=== PATIENT | male | born 1980 | race Caucasian/White ===

== ENCOUNTER → 2016-05-07 | Outpatient (CLI) | payer OTHER ==
[~2016-05-07] MED LIST: Iopamidol 755 MG/ML 500 ML Multipack Bottle IVPUSH STA
--- NOTE | 2016-05-07 14:09 | CT ---
CT of the abdomen and pelvis with contrast. HISTORY: Pain TECHNIQUE: Axial CT images were obtained of the abdomen and pelvis following administration of 100 m L of Isovue-370 in the right antecubital fossa without complication. Coronal and sagittal reconstruc tions obtained. FINDINGS: The lung bases are clear, no pleural effusion. The liver, spleen, adrenal glands, and pancreas appear normal. The gallbladder is unremarkable. No b ulky retroperitoneal lymphadenopathy or abdominal ascites. The kidneys enhance and function symmetrically without evidence of obstructive uropathy. There is a tiny cyst within the lower pole of the left kidney. The large and small bowel are normal in caliber without evidence of obstruction. No pericolonic infl ammation or stranding. The urinary bladder is mostly decompressed. No bulky pelvic lymphadenopathy o r free pelvic fluid. The visualized osseous structures appear normal. Bilateral posterior fusion hardware noted at L5-S1. IMPRESSION: 1. No acute findings within the abdomen or pelvis.
== END ==
LOC: MW.DI 10:18
PROVIDERS: ATTEND Surgery
DX: R10.9 Unspecified abdominal pain (principal); R19.00 Intra-abdominal and pelvic swelling, mass and lump, unspecified site
CPT/HCPCS: 74177; Q9967

== ENCOUNTER 2016-05-14 07:27 | Day surgery (SDC) | payer OTHER ==
--- NOTE | 2016-05-13 11:27 | PCM.PREANE ---
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: no symptoms Respiratory: Reports: no symptoms Cardiovascular: Reports: no symptoms GI: Reports: no symptoms - PHYSICAL ASSESSMENT Height: 1.83 m Weight: 110.223 kg ASA Class: 2 Mental Status: alert & oriented x3 Dentition: Reports: normal dentition ROM/Head Extension: full Respiratory Status: lungs clear to auscultation bilaterally Cardiovascular Status: regular rate & rhythm, normal S1, S2, no murmur - ALLERGIES Allergies/Adverse Reactions: Allergies Allergy/AdvReac Type Severity Reaction Status Date / Time Penicillins Allergy Rash Verified 06/21/14 14:14 - BLOOD Blood Available: No - ANESTHESIA PLAN Preop Beta Kelechi: No Anesthesia Type Planned: general anesthesia, MAC - ACKNOWLEDGEMENTS Pt an appropriate candidate for the planned anesthesia: Yes Alternatives and risks of anesthesia discussed w pt/guardian: Yes Pt/Guardian understands and agree with anesthesia plan: Yes PreAnesthesia Questionnaire Gastrointestinal History: Reports: Other (see below) Other Gastrointestinal History: occasional heartburn Musculoskeletal History: Reports: Other (see below) Other Musculoskeletal History: occasional left knee pain Neurological History: Reports: Migraines Endocrine/Metabolic History: Reports: Obesity/BMI 30+ Immunologic History: Reports: None Other Immunologic History: hx MRSA - Past Surgical History Head Surgeries/Procedures: Reports: None GI Surgical History: Reports: Appendectomy, Colonoscopy Other GI Surgeries/Procedures: anal fissurectomy Neurological Surgical History: Reports: Lumbar spine Other Neurological Surgeries/Procedures: back fusion Other Musculoskeletal Surgeries/Procedures:: hx left hand surgery - SUBSTANCE USE Smoking Status *Q: Former Smoker Second Hand Smoke Exposure: Yes Days Per Week of Alcohol Use: 0 Number of Drinks Per Day: 3 Total Drinks Per Week: 0 Recreational Drug Use History: No - HOME MEDS Home Medications: Home Meds Acetaminophen [Tylenol Extra Strength] 1 tab PO ASDIRECTED PRN 05/09/16 [History ] Fish Oil/[place]-3 Fatty Acids [Fish Oil 1,000 MG] 1,000 mg PO DAILY 05/09/16 [ History] Ibuprofen 1 tab PO ASDIRECTED PRN 05/09/16 [History] Lidocaine 5% [Lidoderm 5%] 1 patch TRDERM ASDIRECTED PRN 05/09/16 [History] Sildenafil [Viagra] 0.5 - 1 tab PO ASDIRECTED PRN 05/09/16 [History]
[~2016-05-14 07:27] MED LIST changes: -Iopamidol 755 MG/ML 500 ML Multipack Bottle IVPUSH STA; +Lactated Ringers 1,000 ML IV SCH
[2016-05-14] MEDS ORDERED: Propofol 200 MG/20 ML SDV ONE (08:23)
[2016-05-14] MEDS ORDERED: fentaNYL 100 MCG/2 ML SDV ONE (08:23)
[2016-05-14] MEDS ORDERED: Midazolam 1 MG/ML 2 ML SDV ONE (08:23)
[2016-05-14] MEDS ORDERED: ceFAZolin 2 GM in Premix Bag 1 BAG IV ONE (08:25)
[2016-05-14] MEDS ORDERED: Octyl 2-Cyanoacrylate 1 Tube ONE (09:15)
[2016-05-14] MEDS ORDERED: Bupivacaine 0.25%/EPINEPHrine 1:200,000 10 ML SDV ONE ×2 (09:15→10:10)
[2016-05-14] MEDS ORDERED: Acetaminophen/oxyCODONE 325-10 MG Tab PO PRN (09:19)
[2016-05-14] MEDS ORDERED: Clindamycin Phosphate in D5W 600 MG in Premix Bag 50 BAG IV ONE ×2 (09:26)
[2016-05-14] MEDS ORDERED: Lactated Ringers 1,000 ML IV SCH (09:30)
--- NOTE | 2016-05-14 10:10 | PCM.OPNOTE ---
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
--- NOTE | 2016-05-14 10:18 | PCM.POSTAN ---
POST ANESTHESIA ASSESSMENT - MENTAL STATUS Mental Status: alert (Bypassed PACU. Awake, alert and comfortable.), oriented - RESPIRATORY Respiratory Status: respiratory rate WNL, airway patent, O2 saturation stable - CARDIOVASCULAR CV Status: pulse rate WNL, blood pressure stable - GASTROINTESTINAL GI Status: no symptoms - POST OP HYDRATION Hydration Status: adequate & stable
--- NOTE | 2016-05-14 10:22 | PCM48HPAN ---
Post Anesthesia Note - EVALUATION WITHIN 48HRS OF ANESTHETIC Vital Signs in Normal Range: Yes Patient Participated in Evaluation: Yes Respiratory Function Stable: Yes Airway Patent: Yes Cardiovascular Function Stable: Yes Hydration Status Stable: Yes Pain Control Satisfactory: Yes Nausea and Vomiting Control Satisfactory: Yes Mental Status Recovered: Yes
[2016-05-14 13:03] VITALS: BP 106/60
--- NOTE | 2016-05-14 17:29 | OR ---
SURGEON: Jose Francisco Aguilar MD DATE OF PROCEDURE: 05/14/2016 PREOPERATIVE DIAGNOSIS: Abdominal mass. POSTOPERATIVE DIAGNOSIS: Abdominal mass. PROCEDURE PERFORMED: Excisional biopsy. COMPLICATIONS: None. FINDINGS: Abdominal mass is a little bit to the left of the base of penis and is well encapsulated lipoma, excised en bloc sent for pathology. PROCEDURE IN DETAIL: The patient was taken to the operating room and placed in a supine position. Upon induction of mild general anesthesia, the patient's was prepped and draped in a sterile fashion. Time-out was then called and patient identified, procedure identified, antibiotic given and procedure was then started. After assessment of appropriate landmarks, an oblique incision right on top of the mass was made 3 x 1 cm, which the mass was easily squeezed out and sent for pathology, the well encapsulated with lipoma appearance. No other organ encountered and good hemostasis was achieved by using electrocautery. The wound was irrigated and closed by using 3-0 Ethilon simple interrupted running was placed and followed with appropriate dressing. The patient was awakened and transferred to recovery in hemodynamically stable condition. The patient tolerated the procedure well. There were no intraoperative complications. Dr. Aguilar was present throughout the whole procedure. NORAH / NARESH /[id number]
== END 2016-05-14 11:02 | disposition home or self-care (01) ==
LOC: MW.SDS 07:27
PROVIDERS: ATTEND Surgery
PROC: 0WBF0ZX Excision of Abdominal Wall, Open Approach, Diagnostic (ICD-10-PCS; principal; 2016-05-14)
DX: D17.39 Benign lipomatous neoplasm of skin and subcutaneous tissue of other sites (principal); R19.09 Other intra-abdominal and pelvic swelling, mass and lump; K40.90 Unilateral inguinal hernia, without obstruction or gangrene, not specified as recurrent; N52.9 Male erectile dysfunction, unspecified; H60.90 Unspecified otitis externa, unspecified ear; G43.109 Migraine with aura, not intractable, without status migrainosus; M25.562 Pain in left knee; M67.462 Ganglion, left knee; M22.42 Chondromalacia patellae, left knee; Z88.0 Allergy status to penicillin; Z87.891 Personal history of nicotine dependence; E66.9 Obesity, unspecified; Z68.33 Body mass index [BMI] 33.0-33.9, adult
CPT/HCPCS: 22999; J0690; J2250; J3010; J7120; 00400; 88304; A9270-GY; J2704

== ENCOUNTER → 2016-05-27 | Outpatient (CLI) | payer OTHER | END | disposition home or self-care (01) | LOC: MW.CHUR 09:47 | PROVIDERS: ATTEND Urology | DX: N52.9 Male erectile dysfunction, unspecified (principal) | CPT/HCPCS: 81001 ==

== ENCOUNTER 2016-05-30 11:35 | Emergency (ER) | payer OTHER ==
[2016-05-30] MEDS ORDERED: Sodium Chloride 0.9% 10 ML Syringe FLUSH PRN (12:25)
[2016-05-30] MEDS ORDERED: Sodium Chloride 0.9% 2.5 ML Syringe FLUSH PRN (12:25)
[2016-05-30] MEDS ORDERED: HYDROmorphone 2 MG/ML Syringe IVPUSH ONE ×2 (12:25→13:46)
[2016-05-30] MEDS ORDERED: Sodium Chloride 0.9% 1,000 ML IV ONE (12:25)
--- NOTE | 2016-05-30 12:41 | EDM.PDOC ---
ED HPI GENERAL MEDICAL PROBLEM - General Chief Complaint: General Stated Complaint: PAIN Time Seen by Provider: 05/30/16 12:14 - History of Present Illness INITIAL COMMENTS - FREE TEXT/NARRATIVE: HISTORY AND PHYSICAL: History of present illness: The patient is a 35-year-old male with a history of surgery--excisional biopsy- - with Dr. Aguilar on May 14 to remove an encapsulated mass at his suprapubic area. The patient had his su removed on Friday, 3 days ago, and he is here because he has not had pain at the site and he suddenly has pain at the site for the last day and a half. He also is concerned that maybe the skin edges were opening up. The patient says he feels lightheaded and weak because of the pain he is not taking pain medications recently for this. The patient denies any fever chills chest pain or shortness of breath and has no abdominal pain. He states that this morning he had a small bowel movement which was yellow in color with bright red blood. He denies any history of colonic or rectal issues. He has no rectal pain. Patient has not passed out or blacked out but does feel very lightheaded and not dizzy. Review of systems: As per history of present illness and below otherwise all systems reviewed and negative. Past medical history: As per history of present illness and as reviewed below otherwise noncontributory. Surgical history: As per history of present illness and as reviewed below otherwise noncontributory. Social history: No reported history of drug or alcohol abuse. Family history: As per history of present illness and as reviewed below otherwise noncontributory. Physical exam: General: Well-developed well-nourished male nontoxic moves easily in the bed. His vital signs of a noted by me HEENT: Atraumatic, normocephalic, negative for conjunctival pallor or scleral icterus, mucous membranes moist, throat clear, neck supple, nontender, trachea midline. Lungs: Clear to auscultation, breath sounds equal bilaterally, chest nontender. Heart: S1S2, regular, negative for clicks, rubs, or JVD. Abdomen: Soft, nondistended, nontender. Negative for masses or hepatosplenomegaly. Negative for costovertebral tenderness. Pelvis: Stable nontender. Genitourinary: At the soft tissue lower pelvic area/mons pubis to the left there is a well-healed incision without erythema and Steri-Strips are in place. There is no fluctuance appreciated there is only minimal induration at the incision line. The skin edges are well approximated. There is some tenderness just medial to this incision but there is no fluctuance tenderness redness or swelling appreciated. Rectal: Normal tone no evidence of any masses or lesions and there is no stool in the vault but the mucus is heme-negative Extremities: Atraumatic, negative for cords or calf pain. Neurovascular unremarkable. Neuro: Awake, alert, oriented. Cranial nerves II through XII unremarkable. Cerebellum unremarkable. Motor and sensory unremarkable throughout. Exam nonfocal. Diagnostics: Orthostatic vital CBC CMP INR CT scan of the abdomen and pelvis Therapeutics: IV fluids Dilaudid Zofran [place] 1343: Case was discussed with ; he does not feel that the pain is postsurgical but he agrees that the patient is having severe pain to repeat the CAT scan and to recontact him if there is any problems. He also is aware of the one episode of blood in the stool and that he can follow that up with a possible colonoscopy as needed. The testing results including the CAT scan were discussed with the patient and at bedside. They're aware of the negative findings and the has scheduled a followup appointment with Dr. Aguilar for tomorrow. I will not recontact Dr. Aguilar with the testing results as I told him I would only recontact him if there was significant findings. I will prescribe pain meds for home for the next 24 hours and will stress rest slower movements and reasons to return Impression: Postoperative pain/incisional pain stable Definitive disposition and diagnosis as appropriate pending reevaluation and review of above. Left Groin Pain Score (Numeric/FACES): 8 - Related Data Allergies Allergy/AdvReac Type Severity Reaction Status Date / Time Penicillins Allergy Rash Verified 06/21/14 14:14 Home Meds: Home Meds Acetaminophen [Tylenol Extra Strength] 1 tab PO ASDIRECTED PRN 05/09/16 [History ] Fish Oil/[place]-3 Fatty Acids [Fish Oil 1,000 MG] 1,000 mg PO DAILY 05/09/16 [ History] Ibuprofen 1 tab PO ASDIRECTED PRN 05/09/16 [History] Lidocaine 5% [Lidoderm 5%] 1 patch TRDERM ASDIRECTED PRN 05/09/16 [History] Sildenafil [Viagra] 0.5 - 1 tab PO ASDIRECTED PRN 05/09/16 [History] Past Medical History Gastrointestinal History: Reports: Other (see below) Other Gastrointestinal History: occasional heartburn Musculoskeletal History: Reports: Other (see below) Other Musculoskeletal History: occasional left knee pain Neurological History: Reports: Migraines Endocrine/Metabolic History: Reports: Obesity/BMI 30+ Immunologic History: Reports: None Other Immunologic History: hx MRSA - Past Surgical History Head Surgeries/Procedures: Reports: None GI Surgical History: Reports: Appendectomy, Colonoscopy, Other (see below) Other GI Surgeries/Procedures: anal fissurectomy, removal of mass Neurological Surgical History: Reports: Lumbar spine Other Neurological Surgeries/Procedures: back fusion Other Musculoskeletal Surgeries/Procedures:: hx left hand surgery Social & Family History - Tobacco Use Smoking Status *Q: Never Smoker Years of Tobacco use: 10 Month Tobacco Last Used: quit smoking 5 yrs ago Second Hand Smoke Exposure: No - Caffeine Use Caffeine Use: Reports: Soda - Alcohol Use Days Per Week of Alcohol Use: 0 Number of Drinks Per Day: 3 Total Drinks Per Week: 0 - Recreational Drug Use Recreational Drug Use: No Drug Use in Last 12 Months: No ED ROS GENERAL - Review of Systems Review Of Systems: ROS reveals no pertinent complaints other than HPI. ED EXAM, GENERAL - Physical Exam Exam: See Below (See dictation) Course - Vital Signs Last Recorded V/S: Last Vital Signs Temp 36.7 C 05/30/16 11:52 Pulse 65 05/30/16 14:48 Resp 18 05/30/16 14:48 BP 128/76 05/30/16 14:48 Pulse Ox 98 05/30/16 14:48 Orthostatic Blood Pressure [ 141/92 Standing] Orthostatic Blood Pressure [ 124/87 Sitting] Orthostatic Blood Pressure [ 126/84 Supine] - Orders/Labs/Meds Orders: Active Orders 24 hr Category Date Time Status Communication Order [RC] STAT Care 05/30/16 12:24 Active Fecal Occult Blood Collection [RC] ASDIRECTED Care 05/30/16 13:40 Active Orthostatic Vital Signs [RC] ASDIRECTED Care 05/30/16 12:27 Active Sodium Chloride 0.9% [Saline Flush] Med 05/30/16 12:25 Active 10 ml FLUSH ASDIRECTED PRN Sodium Chloride 0.9% [Saline Flush] Med 05/30/16 12:25 Active 2.5 ml FLUSH ASDIRECTED PRN Saline Lock Insert [OM.PC] Stat Oth 05/30/16 12:24 Ordered Medication Orders Sodium Chloride (Saline Flush) 10 ml FLUSH ASDIRECTED PRN PRN Reason: Keep Vein Open Sodium Chloride (Saline Flush) 2.5 ml FLUSH ASDIRECTED PRN PRN Reason: Keep Vein Open Labs: Laboratory Tests 05/30/16 05/30/16 05/30/16 Range/Units 12:40 12:40 12:40 WBC 8.40 (4.0-11.0) K/uL RBC 4.87 (4.50-5.90) M/uL Hgb 15.0 (13.0-17.0) g/dL Hct 43.9 (38.0-50.0) % MCV 90.1 (80.0-98.0) fL MCH 30.8 (27.0-32.0) pg MCHC 34.2 (31.0-37.0) g/dL RDW Std Deviation 41.3 (28.0-62.0) fl RDW Coeff of [place] 13 (11.0-15.0) % Plt Count 284 (150-400) K/uL MPV 9.80 (7.40-12.00) fL Neut % (Auto) 50.5 (48.0-80.0) % Lymph % (Auto) 35.0 (16.0-40.0) % [place] % (Auto) 11.3 (0.0-15.0) % Eos % (Auto) 2.5 (0.0-7.0) % Baso % (Auto) 0.7 (0.0-1.5) % Neut # (Auto) 4.2 (1.4-5.7) K/uL Lymph # (Auto) 2.9 H (0.6-2.4) K/uL [place] # (Auto) 1.0 H (0.0-0.8) K/uL Eos # (Auto) 0.2 (0.0-0.7) K/uL Baso # (Auto) 0.1 (0.0-0.1) K/uL Nucleated RBC % 0.0 /100WBC Nucleated RBCs # 0 K/uL INR 1.02 (0.86-1.11) Sodium 140 (136-146) mmol/L Potassium 4.0 (3.5-5.1) mmol/L Chloride 108 (98-110) mmol/L Carbon Dioxide 22 (21-31) mmol/L BUN 22 (6.0-23.0) mg/dL Creatinine 1.1 (0.6-1.5) mg/dL Est Cr Clr Drug Dosing 103.86 mL/min Estimated GFR (MDRD) > 60.0 ml/min Glucose 81 (60-110) mg/dL Calcium 9.4 (8.8-10.8) mg/dL Total Bilirubin 0.4 (0.1-1.5) mg/dL AST 14 (5-40) IU/L ALT 23 (8-54) IU/L Alkaline Phosphatase 56 (40-150) Total Protein 7.2 (6.0-8.0) g/dL Albumin 4.1 (3.5-5.0) g/dL Globulin 3.1 (2.0-3.5) g/dL Albumin/Globulin Ratio 1.3 (1.3-2.8) Urine Color Urine Appearance Urine pH (5.0-8.0) Ur Specific [place] (1.001-1.035) Urine Protein (NEGATIVE) mg/dL Urine Glucose (UA) (NEGATIVE) mg/dL Urine Ketones (NEGATIVE) mg/dL Urine Occult Blood (NEGATIVE) Urine Nitrite (NEGATIVE) Urine Bilirubin (NEGATIVE) Urine Urobilinogen (<2.0) EU/dL Ur Leukocyte Esterase (NEGATIVE) Urine RBC (0-2/HPF) Urine WBC (0-5/HPF) Ur Epithelial Cells (NONE-FEW) Urine Bacteria (NEGATIVE) 05/30/16 Range/Units 13:56 WBC (4.0-11.0) K/uL RBC (4.50-5.90) M/uL Hgb (13.0-17.0) g/dL Hct (38.0-50.0) % MCV (80.0-98.0) fL MCH (27.0-32.0) pg MCHC (31.0-37.0) g/dL RDW Std Deviation (28.0-62.0) fl RDW Coeff of [place] (11.0-15.0) % Plt Count (150-400) K/uL MPV (7.40-12.00) fL Neut % (Auto) (48.0-80.0) % Lymph % (Auto) (16.0-40.0) % [place] % (Auto) (0.0-15.0) % Eos % (Auto) (0.0-7.0) % Baso % (Auto) (0.0-1.5) % Neut # (Auto) (1.4-5.7) K/uL Lymph # (Auto) (0.6-2.4) K/uL [place] # (Auto) (0.0-0.8) K/uL Eos # (Auto) (0.0-0.7) K/uL Baso # (Auto) (0.0-0.1) K/uL Nucleated RBC % /100WBC Nucleated RBCs # K/uL INR (0.86-1.11) Sodium (136-146) mmol/L Potassium (3.5-5.1) mmol/L Chloride (98-110) mmol/L Carbon Dioxide (21-31) mmol/L BUN (6.0-23.0) mg/dL Creatinine (0.6-1.5) mg/dL Est Cr Clr Drug Dosing mL/min Estimated GFR (MDRD) ml/min Glucose (60-110) mg/dL Calcium (8.8-10.8) mg/dL Total Bilirubin (0.1-1.5) mg/dL AST (5-40) IU/L ALT (8-54) IU/L Alkaline Phosphatase (40-150) Total Protein (6.0-8.0) g/dL Albumin (3.5-5.0) g/dL Globulin (2.0-3.5) g/dL Albumin/Globulin Ratio (1.3-2.8) Urine Color YELLOW Urine Appearance CLEAR Urine pH 5.5 (5.0-8.0) Ur Specific [place] 1.025 (1.001-1.035) Urine Protein NEGATIVE (NEGATIVE) mg/dL Urine Glucose (UA) NEGATIVE (NEGATIVE) mg/dL Urine Ketones NEGATIVE (NEGATIVE) mg/dL Urine Occult Blood NEGATIVE (NEGATIVE) Urine Nitrite NEGATIVE (NEGATIVE) Urine Bilirubin NEGATIVE (NEGATIVE) Urine Urobilinogen 0.2 (<2.0) EU/dL Ur Leukocyte Esterase NEGATIVE (NEGATIVE) Urine RBC 0-2 (0-2/HPF) Urine WBC 0-1 (0-5/HPF) Ur Epithelial Cells RARE (NONE-FEW) Urine Bacteria RARE (NEGATIVE) Meds: Medications Generic Name Dose Route Start Last Admin Trade Name Freq PRN Reason Stop Dose Admin Sodium Chloride 10 ml 05/30/16 12:25 Saline Flush FLUSH ASDIRECTED PRN Keep Vein Open Sodium Chloride 2.5 ml 05/30/16 12:25 Saline Flush FLUSH ASDIRECTED PRN Keep Vein Open Discontinued Medications Generic Name Dose Route Start Last Admin Trade Name Freq PRN Reason Stop Dose Admin Hydromorphone HCl 0.5 mg 05/30/16 12:25 05/30/16 12:42 Dilaudid IVPUSH 05/30/16 12:26 0.5 mg ONETIME ONE Administration Hydromorphone HCl 1 mg 05/30/16 13:46 05/30/16 14:01 Dilaudid IVPUSH 05/30/16 13:47 1 mg ONETIME ONE Administration Sodium Chloride 1,000 mls @ 999 mls/hr 05/30/16 12:25 05/30/16 12:41 Normal Saline IV 05/30/16 13:25 999 mls/hr STAT ONE Administration Iopamidol 100 ml 05/30/16 14:29 05/30/16 14:30 Isovue Multipack-370 (76%) IVPUSH 05/30/16 14:30 100 ml ONETIME STA Administration Lorazepam 1 mg 05/30/16 14:09 05/30/16 14:16 Ativan IVPUSH 05/30/16 14:10 1 mg ONETIME ONE Administration Departure - Departure Time of Disposition: 15:46 Disposition: Home, Self-Care 01 Condition: good Clinical Impression: Pain at surgical incision Forms: ED Department Discharge Additional Instructions: The following information is given to patients seen in the emergency department who are being discharged to home. This information is to outline your options for follow-up care. We provide all patients seen in our emergency department with a follow-up referral. The need for follow-up, as well as the timing and circumstances, are variable depending upon the specifics of your emergency department visit. If you don't have a primary care physician on staff, we will provide you with a referral. We always advise you to contact your personal physician following an emergency department visit to inform them of the circumstance of the visit and for follow-up with them and/or the need for any referrals to a consulting specialist. The emergency department will also refer you to a specialist when appropriate. This referral assures that you have the opportunity for followup care with a specialist. All of these measure are taken in an effort to provide you with optimal care, which includes your followup. Under all circumstances we always encourage you to contact your private physician who remains a resource for coordinating your care. When calling for followup care, please make the office aware that this follow-up is from your recent emergency room visit. If for any reason you are refused follow-up, please contact the [facility] emergency department at and ask to speak to the emergency department charge nurse. [facility] Specialty Care-General Surgery Professional Building [address] [place] [id number] [facility] Primary care- Internal Medicine and Family [facility] [address] [place] [phone] Please keep your appointment tomorrow with Dr. Aguilar for further care and evaluation and more medication as he might need. Please return to ER as needed and as discussed. Please try to rest and reduce activity and do motions more slowly. Use meds as prescribed and as needed - My Orders Last 24 Hours: My Active Orders 05/30/16 12:24 Communication Order [RC] STAT Saline Lock Insert [OM.PC] Stat 05/30/16 12:25 Sodium Chloride 0.9% [Saline Flush] 10 ml FLUSH ASDIRECTED PRN Sodium Chloride 0.9% [Saline Flush] 2.5 ml FLUSH ASDIRECTED PRN 05/30/16 12:27 Orthostatic Vital Signs [RC] ASDIRECTED 05/30/16 13:40 Fecal Occult Blood Collection [RC] ASDIRECTED - Assessment/Plan Last 24 Hours: My Active Orders 05/30/16 12:24 Communication Order [RC] STAT Saline Lock Insert [OM.PC] Stat 05/30/16 12:25 Sodium Chloride 0.9% [Saline Flush] 10 ml FLUSH ASDIRECTED PRN Sodium Chloride 0.9% [Saline Flush] 2.5 ml FLUSH ASDIRECTED PRN 05/30/16 12:27 Orthostatic Vital Signs [RC] ASDIRECTED 05/30/16 13:40 Fecal Occult Blood Collection [RC] ASDIRECTED
[2016-05-30 13:17] LABS: CHLORIDE,CL 108 mmol/L (98-110); SODIUM,NA 140 mmol/L (136-146)
[2016-05-30] MEDS ORDERED: LORazepam 2 MG/ML MDV IVPUSH ONE (14:09)
[2016-05-30] MEDS ORDERED: Iopamidol 755 MG/ML 500 ML Multipack Bottle IVPUSH STA (14:29)
--- NOTE | 2016-05-30 15:06 | CT ---
CT of the abdomen and pelvis with contrast. HISTORY: Pain TECHNIQUE: Axial CT images were obtained of the abdomen and pelvis following administration of 100 m L of Isovue-370 in the right antecubital fossa without complication. Coronal and sagittal reconstruc tions obtained. FINDINGS: The lung bases are clear, no pleural effusion. Trace dependent atelectasis is noted. The liver, spleen, adrenal glands, and pancreas appear normal. The gallbladder is normal. There is n o bulky retroperitoneal lymphadenopathy or abdominal ascites. The kidneys enhance and function symmetrically without evidence of obstructive uropathy. Small renal cortical cysts are noted. The large and small bowel are normal in caliber without evidence of obstruction. Appendectomy. The urinary bladder is mostly decompressed. No bulky pelvic lymphadenopathy or free pelvic fluid. No suspicious osseous abnormalities identified. Bilateral posterior fusion hardware at L5-S1 with a laminectomy at L5. IMPRESSION: 1. No acute findings within the abdomen or pelvis.
[2016-05-30] MEDS ORDERED: Ketorolac 30 MG/ML SDV IVPUSH ONE (15:47)
[2016-05-30] MEDS ORDERED: Acetaminophen/HYDROcodone 325-7.5 MG Tab PO ONE (15:47)
[2016-05-30 16:47] VITALS: BP 116/80
== END 2016-05-30 16:06 | disposition home or self-care (01) ==
LOC: MW.ED 11:35
DX: G89.18 Other acute postprocedural pain (principal); Z88.0 Allergy status to penicillin; Z79.899 Other long term (current) drug therapy
CPT/HCPCS: 74177; 80053; 81001; 85025; 85610; 96361; 96374; 96375; 96376; 99284; A9270; J1170; J1885; J2060; J7040; Q9967; 99285

== ENCOUNTER → 2016-06-26 | Outpatient (CLI) | payer OTHER | END | disposition home or self-care (01) | LOC: MW.CHUR 09:42 | PROVIDERS: ATTEND Urology | DX: E29.1 Testicular hypofunction (principal) | CPT/HCPCS: 36415; 84402; 84403 ==

== ENCOUNTER 2016-06-27 09:50 | Day surgery (SDC) | payer OTHER ==
[2016-06-27] MEDS ORDERED: Propofol 200 MG/20 ML SDV ONE ×2 (10:21→12:11)
[2016-06-27] MEDS ORDERED: Lidocaine 2% 5 ML SDV ONE (10:21)
[2016-06-27] MEDS ORDERED: Midazolam 1 MG/ML 2 ML SDV ONE (10:22)
[2016-06-27] MEDS ORDERED: fentaNYL 100 MCG/2 ML SDV ONE (10:22)
--- NOTE | 2016-06-27 11:01 | PCM.PREANE ---
Preanesthetic Assessment - Anesthesia/Transfusion/Family Hx Anesthesia History: Prior Anesthesia Without Reaction Other Type of Anesthesia Reaction Comment: Denies any known problems in the past Family History of Anesthesia Reaction: No Transfusion History: No Prior Transfusion(s) - Review of Systems General: No Symptoms Pulmonary: No Symptoms Cardiovascular: No Symptoms Neurological: No Symptoms Other: Reports: None - Physical Assessment O2 Sat by Pulse Oximetry: 98 Respiratory Rate: 16 Vital Signs: Last Vital Signs Temp 36.6 C 06/27/16 10:37 Pulse 69 06/27/16 10:37 Resp 16 06/27/16 10:37 BP 117/69 06/27/16 10:37 Pulse Ox 98 06/27/16 10:37 Height: 1.83 m Weight: 110.223 kg ASA Class: 2 Mental Status: Alert & Oriented x3 Airway Class: Mallampati = 2 Dentition: Reports: Normal Dentition Thyro-Mental Finger Breadths: 3 Mouth Opening Finger Breadths: 3 ROM/Head Extension: Full Lungs: Clear to auscultation, Normal respiratory effort Cardiovascular: Regular Rate, Regular Rhythm - Allergies Allergies/Adverse Reactions: Allergies Allergy/AdvReac Type Severity Reaction Status Date / Time Penicillins Allergy Rash Verified 06/21/14 14:14 - Blood Blood Available: No - Anesthesia Plan Pre-Op Medication Ordered: None - Acknowledgements Anesthesia Type Planned: MAC Pt an Appropriate Candidate for the Planned Anesthesia: Yes Alternatives and Risks of Anesthesia Discussed w Pt/Guardian: Yes Pt/Guardian Understands and Agrees with Anesthesia Plan: Yes PreAnesthesia Questionnaire Cardiovascular History: Reports: High cholesterol (h/o slightly increased cholesterol, takes fish oil) Gastrointestinal History: Reports: Other (see below) Other Gastrointestinal History: occasional heartburn Musculoskeletal History: Reports: Other (see below) Other Musculoskeletal History: occasional left knee pain, h/o back pain Neurological History: Reports: Migraines Endocrine/Metabolic History: Reports: Obesity/BMI 30+ Immunologic History: Reports: None Other Immunologic History: hx MRSA Dermatologic History: Reports: Other (see below) Other Dermatologic History: resection of abd wall lipoma approximently 4 to 5 weeks ago - Past Surgical History Head Surgeries/Procedures: Reports: None GI Surgical History: Reports: Appendectomy, Colonoscopy, Other (see below) Other GI Surgeries/Procedures: anal fissurectomy, removal of abdominal wall lipoma about a month ago Neurological Surgical History: Reports: Lumbar spine Other Neurological Surgeries/Procedures: back fusion Other Musculoskeletal Surgeries/Procedures:: hx left hand surgery - SUBSTANCE USE Smoking Status *Q: Current Every Day Smoker (quit 10 years ago) Second Hand Smoke Exposure: No Days Per Week of Alcohol Use: 0 Number of Drinks Per Day: 3 Total Drinks Per Week: 0 Recreational Drug Use History: No - HOME MEDS Home Medications: Home Meds Acetaminophen [Tylenol Extra Strength] 1 - 2 tab PO ASDIRECTED PRN 06/25/16 [ History] Melatonin 1 mg PO BEDTIME PRN 06/25/16 [History] - CURRENT (IN HOUSE) MEDS Current Meds: Current Medications Lactated Ringer's (Ringers, Lactated) 1,000 mls @ 125 mls/hr IV ASDIRECTED QUYNH Last Admin: 06/27/16 10:40 Dose: 125 mls/hr Discontinued Medications Fentanyl (Sublimaze) Confirm Administered Dose 100 mcg .ROUTE .STK-MED ONE Stop: 06/27/16 10:23 Lidocaine (Xylocaine-Mpf 2%) Confirm Administered Dose 5 ml .ROUTE .STK-MED ONE Stop: 06/27/16 10:22 Midazolam HCl (Versed 1 Mg/Ml) Confirm Administered Dose 2 mg .ROUTE .STK-MED ONE Stop: 06/27/16 10:23 Propofol (Diprivan 20 Ml) Confirm Administered Dose 400 mg .ROUTE .STK-MED ONE Stop: 06/27/16 10:22
[2016-06-27] MEDS ORDERED: Racepinephrine 2.25% 0.5 ML Neb Soln ONE (12:26)
[2016-06-27] MEDS ORDERED: Racepinephrine 2.25% 0.5 ML Neb Soln NEB ONE (12:31)
--- NOTE | 2016-06-27 12:36 | PCM.OPNOTE ---
- General Post-Op/Procedure Note Date of Surgery/Procedure: 06/27/16 Operative Procedure(s): egd w bx. colonoscopy w snare polypectomy Findings: see dict [id number] Pre Op Diagnosis: abd pain and gib Post-Op Diagnosis: gastric, esophageal ulcer and colon polyp Anesthesia Technique: Moderate sedation Primary Surgeon: Jose Francisco Aguilar Pathology: 5 mm sessile polyp at 30cm, snare polypectomy egd bx Complications: None Condition: Good
--- NOTE | 2016-06-27 13:01 | PCM.POSTAN ---
POST ANESTHESIA ASSESSMENT - MENTAL STATUS Mental Status: alert, oriented - RESPIRATORY Respiratory Status: respiratory rate WNL, airway patent, O2 saturation stable - CARDIOVASCULAR CV Status: pulse rate WNL, blood pressure stable - GASTROINTESTINAL GI Status: no symptoms - POST OP HYDRATION Hydration Status: adequate & stable - OBSERVATIONS Free Text/Narrative:: no anesthesia problems
[2016-06-27 13:22] VITALS: BP 139/83
--- NOTE | 2016-06-27 18:34 | OR ---
SURGEON: Jose Francisco Aguilar MD DATE OF PROCEDURE: 06/27/2016 PREOPERATIVE DIAGNOSES: Abdominal pain and gastrointestinal bleeding. POSTOPERATIVE DIAGNOSES: Abdominal pain and gastrointestinal bleeding. PROCEDURE PERFORMED: 1. Esophagogastroduodenoscopy with biopsy. 2. Colonoscopy with snare polypectomy. DESCRIPTION OF PROCEDURE: EGD: The patient was taken to the endoscopy room, and with the MATTRESS SPRING ENCASER, Diprivan was administered. A well-lubricated EGD scope was gently inserted through the oropharynx, down the esophagus, passing through the gastroesophageal junction, into the stomach. The mucosa was examined upon the passage. Any etiology will be noted. Once in the stomach, we continued to advance to the distal antrum, passed through the pylorus into the second portion of the duodenum. Again, the mucosa was examined for any abnormality and etiology. The scope was then retrieved back to the stomach and then retroflexed to look at the fundus of the stomach. If a biopsy was indicated, we will biopsy the antrum, body, and gastroesophageal junction. The air will be sucked out while the scope is retrieved to reduce the patient's discomfort. The patient tolerated the procedure well. There were no intraoperative complications. Dr. Aguilar was present through the whole procedure. Prior to surgery, a time-out had been called, the patient identified, procedure identified and antibiotic administered. Colonoscopy: The patient was taken to the endoscopy room. A time out was called, patient identified, and procedure identified. Diprivan was then administrated. Patient went from awake to sleep, hearing doctor talking or door closing is normal. Perineum inspection and digital examination were then performed. A well-lubricated colonoscope was gently inserted through the rectum, advanced past the rectosigmoid junction, the descending colon, splenic flexure, transverse colon, hepatic flexure, ascending colon, arrived to the cecum. Cecum was identified as dictated in the finding. Then the scope was carefully withdrawn while attention was paid to the mucosal surface for any abnormality. Air will be sucked out during the scope withdrawal. At the rectum, retroflexed to examine any rectal diseases, fistula or hemorrhoids. During mucosal examination, abnormality or polyp encountered. Using snare equipment, the abnormality or the polyp was then snared off using electrocautery. The Patient tolerated procedure well. There were no intraoperative complications, and Dr. Aguilar was present throughout the whole procedure. FINDINGS: EGD findings: 1. The patient is easily sedated with MATTRESS SPRING ENCASER and Diprivan. The patient is soundly snoring. 2. Oropharynx and proximal esophagus is free of disease, inflammation, stricture, ulceration. Distal esophagus is quite inflamed with salmon color change consistent with acid reflux as well as some area looked like a punctate ulcer that is not bleeding, but is very inflamed right at the GE junction in the esophageal aspect. Stomach rugae is normal in appearance and no bile, no food particle, and stomach is quite inflamed too and with several area with a cluster of punctate ulcer and no elsi bleeding observed. Duodenal bulb and duodenum is totally normal in appearance. The scope was retrieved back to the stomach and retroflexed to look at the fundus of the stomach and there was no hiatal hernia or other etiology. Biopsy done at antrum with an ulcer across this biopsy 1, and also biopsy of the body and GE junction at 40, and sucked out air while scope pulling out. Colonoscopy findings: The patient is easily sedated with MATTRESS SPRING ENCASER and Diprivan. The patient is soundly snoring and bowel prep is left to be desirable. There is quite a lot of liquid stool, no semi-formed stool, and obscured study and is a compromised study because of the bowel prep and requiring constant irrigation. Colon was rather straight forward. Cecum indicated by ileocecal fold, one-to- one indentation, light immittance, and appendiceal orifice. Mucosa examined upon scope pulling out and the patient does not have diverticulosis, but the patient has a small sessile polyp at distance 30 cm when the scope come out, or 40 cm when the scope go in, 5 mm sessile polyp removed by snare polypectomy, captured, and sent for pathology. The patient also have external and internal hemorrhoid moderate and the patient will benefit from repeat colonoscopy 3 years from today or if pathology of polyp and clinical indicated otherwise. NORAH / NARESH /[id number]
== END 2016-06-27 13:20 | disposition home or self-care (01) ==
LOC: MW.SDS 09:50
PROVIDERS: ATTEND Surgery
PROC: 0DB48ZX Excision of Esophagogastric Junction, Via Natural or Artificial Opening Endoscopic, Diagnostic (ICD-10-PCS; principal; 2016-06-27)
PROC: 0DB68ZX Excision of Stomach, Via Natural or Artificial Opening Endoscopic, Diagnostic (ICD-10-PCS; 2016-06-27)
PROC: 0DBE8ZZ Excision of Large Intestine, Via Natural or Artificial Opening Endoscopic (ICD-10-PCS; 2016-06-27)
DX: K25.9 Gastric ulcer, unspecified as acute or chronic, without hemorrhage or perforation (principal); K29.30 Chronic superficial gastritis without bleeding; D12.6 Benign neoplasm of colon, unspecified; K64.4 Residual hemorrhoidal skin tags; K64.8 Other hemorrhoids; N52.9 Male erectile dysfunction, unspecified; E66.9 Obesity, unspecified; Z87.891 Personal history of nicotine dependence; Z86.14 Personal history of Methicillin resistant Staphylococcus aureus infection; Z88.0 Allergy status to penicillin; Z90.49 Acquired absence of other specified parts of digestive tract; Z98.890 Other specified postprocedural states; Z79.899 Other long term (current) drug therapy; Z68.32 Body mass index [BMI] 32.0-32.9, adult
CPT/HCPCS: 43239; 45385; 94664; J2250; J3010; J7120; 00740; 88305; 88312; J2704

== ENCOUNTER 2016-11-24 15:27 | Emergency (ER) | payer OTHER ==
[2016-11-24 15:34] VITALS: BP 135/81
[2016-11-24] MEDS ORDERED: Ketorolac 60 MG/2 ML SDV IM ONE (15:39)
--- NOTE | 2016-11-24 15:43 | EDM.PDOC ---
ED HPI GENERAL MEDICAL PROBLEM - General Chief Complaint: Lower Extremity Injury/Pain Stated Complaint: LEFT KNEE IN PAIN Time Seen by Provider: 11/24/16 15:36 - History of Present Illness INITIAL COMMENTS - FREE TEXT/NARRATIVE: HISTORY AND PHYSICAL: History of present illness: Patient 36-year-old male presents concern of acute left knee injury occurred when he stepped into a omer hole he denies any other trauma or concern this occurred earlier today. Review of systems: As per history of present illness and below otherwise all systems reviewed and negative. Past medical history: As per history of present illness and as reviewed below otherwise noncontributory. Surgical history: As per history of present illness and as reviewed below otherwise noncontributory. Social history: No reported history of drug or alcohol abuse. Family history: As per history of present illness and as reviewed below otherwise noncontributory. Physical exam: HEENT: Atraumatic, normocephalic, pupils reactive, negative for conjunctival pallor or scleral icterus, mucous membranes moist, throat clear, neck supple, nontender, trachea midline. Lungs: Clear to auscultation, breath sounds equal bilaterally, chest nontender. Heart: S1S2, regular, negative for clicks, rubs, or JVD. Abdomen: Soft, nondistended, nontender. Negative for masses or hepatosplenomegaly. Negative for costovertebral tenderness. Pelvis: Stable nontender. Genitourinary: Deferred. Rectal: Deferred. Extremities: Patient has tenderness to palpation of his left knee this is not well localized is no crepitation or point tenderness no gross joint effusion joint exam is limited but grossly stable CMS neurovascular is unremarkable Neuro: Awake, alert, oriented. Cranial nerves II through XII unremarkable. Cerebellum unremarkable. Motor and sensory unremarkable throughout. Exam nonfocal. Diagnostics: X-ray left knee Therapeutics: Toradol 60 mg IM knee immobilizer crutches Impression: #1 acute left knee injury Definitive disposition and diagnosis as appropriate pending reevaluation and review of above. Left Knee Pain Score (Numeric/FACES): 8 - Related Data Allergies Allergy/AdvReac Type Severity Reaction Status Date / Time Penicillins Allergy Rash Verified 11/24/16 15:31 Home Meds: Home Meds Acetaminophen [Tylenol Extra Strength] 1 - 2 tab PO ASDIRECTED PRN 06/25/16 [ History] Melatonin 1 mg PO BEDTIME PRN 06/25/16 [History] Past Medical History HEENT History: Reports: None Cardiovascular History: Reports: High Cholesterol Respiratory History: Reports: None Gastrointestinal History: Reports: Other (See Below) Other Gastrointestinal History: occasional heartburn Musculoskeletal History: Reports: Back Pain, Chronic Other Musculoskeletal History: occasional left knee pain, h/o back pain Neurological History: Reports: Migraines Psychiatric History: Reports: None Endocrine/Metabolic History: Reports: Obesity/BMI 30+ Immunologic History: Reports: None Other Immunologic History: hx MRSA Dermatologic History: Reports: Other (See Below) Other Dermatologic History: resection of abd wall lipoma approximently 4 to 5 weeks ago - Infectious Disease History Infectious Disease History: Reports: Chicken Pox - Past Surgical History Head Surgeries/Procedures: Reports: None HEENT Surgical History: Reports: None GI Surgical History: Reports: Appendectomy, Colonoscopy, Other (See Below) Neurological Surgical History: Reports: Lumbar Spine Musculoskeletal Surgical History: Reports: Other (See Below) Other Musculoskeletal Surgeries/Procedures:: L5-S1 surgery Social & Family History - Tobacco Use Smoking Status *Q: Never Smoker Years of Tobacco use: 10 Month Tobacco Last Used: quit smoking 5 yrs ago Second Hand Smoke Exposure: No - Caffeine Use Caffeine Use: Reports: Soda - Alcohol Use Days Per Week of Alcohol Use: 0 Number of Drinks Per Day: 3 Total Drinks Per Week: 0 - Recreational Drug Use Recreational Drug Use: No Drug Use in Last 12 Months: No Review of Systems - Review of Systems Review Of Systems: ROS reveals no pertinent complaints other than HPI. ED EXAM, GENERAL - Physical Exam Exam: See Below (See dictation) Course - Vital Signs Last Recorded V/S: Last Vital Signs Temp 36.3 C 11/24/16 15:32 Pulse 83 11/24/16 15:32 Resp 20 11/24/16 15:32 BP 135/81 11/24/16 15:32 Pulse Ox 99 11/24/16 15:32 - Orders/Labs/Meds Orders: Active Orders 24 hr Category Date Time Status Knee 3V Lt [CR] Stat Exams 11/24/16 15:34 Ordered Ketorolac [Toradol] Med 11/24/16 15:39 Once 60 mg IM ONETIME ONE Medication Orders Ketorolac Tromethamine (Toradol) 60 mg IM ONETIME ONE Stop: 11/24/16 15:40 Meds: Medications Generic Name Dose Route Start Last Admin Trade Name Tiffany PRN Reason Stop Dose Admin Ketorolac Tromethamine 60 mg 11/24/16 15:39 Toradol IM 11/24/16 15:40 ONETIME ONE Departure - Departure Time of Disposition: 15:42 Disposition: Home, Self-Care 01 Condition: Good Clinical Impression: Knee injury - Discharge Information Referrals: PCP,None [Primary Care Provider] - Additional Instructions: The following information is given to patients seen in the emergency department who are being discharged to home. This information is to outline your options for follow-up care. We provide all patients seen in our emergency department with a follow-up referral. The need for follow-up, as well as the timing and circumstances, are variable depending upon the specifics of your emergency department visit. If you don't have a primary care physician on staff, we will provide you with a referral. We always advise you to contact your personal physician following an emergency department visit to inform them of the circumstance of the visit and for follow-up with them and/or the need for any referrals to a consulting specialist. The emergency department will also refer you to a specialist when appropriate. This referral assures that you have the opportunity for followup care with a specialist. All of these measure are taken in an effort to provide you with optimal care, which includes your followup. Under all circumstances we always encourage you to contact your private physician who remains a resource for coordinating your care. When calling for followup care, please make the office aware that this follow-up is from your recent emergency room visit. If for any reason you are refused follow-up, please contact the [facility] emergency department at and asked to speak to the emergency department charge nurse. [facility] Professional Building [address] [place] [address], [address] [place] [address] Ultram as prescribed knee immobilizer crutches as directed follow-up orthopedic surgery above as discussed return as needed as discussed] - My Orders Last 24 Hours: My Active Orders 11/24/16 15:34 Knee 3V Lt [CR] Stat 11/24/16 15:39 Ketorolac [Toradol] 60 mg IM ONETIME ONE - Assessment/Plan Last 24 Hours: My Active Orders 11/24/16 15:34 Knee 3V Lt [CR] Stat 11/24/16 15:39 Ketorolac [Toradol] 60 mg IM ONETIME ONE
--- NOTE | 2016-11-25 17:03 | CR ---
EXAM DATE: 11/24/16 PATIENT'S AGE: 36 Patient: DILIA YATES Facility: [place], [place] Site . Site : [id number] Study: XRay Knee Left [id number] 5:11:23 PM Ordering Physician: Doctor Gomez Final Report: INDICATION: Trauma left knee; pain. Comparison: Radiographs of the left knee October 31, 2015. Technique: Three-view study left knee. Findings: No evidence of fracture or dislocation. Suprapatellar synovial effusion. No bone or soft tissue abnormalities. Impression: 1. Suprapatellar synovial effusion. 2. No evidence of fracture or dislocation. Dictated by Eleuterio Aguirre MD @ Nov 24 2016 5:40PM (Electronic Signature) Report Signed by Proxy. MIKE
== END 2016-11-24 17:59 | disposition home or self-care (01) ==
LOC: MW.ED 15:27
DX: S89.92XA Unspecified injury of left lower leg, initial encounter (principal); E78.00 Pure hypercholesterolemia, unspecified; E66.9 Obesity, unspecified; Z88.0 Allergy status to penicillin; Z90.49 Acquired absence of other specified parts of digestive tract; W22.8XXA Striking against or struck by other objects, initial encounter
CPT/HCPCS: 73562; 96372; 99283; J1885

== ENCOUNTER 2016-12-09 07:45 | Day surgery (SDC) | payer OTHER ==
[2016-12-09] MEDS ORDERED: Acetaminophen/HYDROcodone 325-5 MG Tab PO PRN (08:00)
[2016-12-09] MEDS ORDERED: Clindamycin Phosphate in D5W 900 MG in Premix Bag 1 BAG IV SCH ×2 (08:00)
--- NOTE | 2016-12-09 08:37 | PCM.PREANE ---
Preanesthetic Assessment - Anesthesia/Transfusion/Family Hx Anesthesia History: Prior Anesthesia Without Reaction Other Type of Anesthesia Reaction Comment: states he is slow waking up, after colonoscopy Family History of Anesthesia Reaction: No Transfusion History: No Prior Transfusion(s) - Review of Systems General: No Symptoms Pulmonary: No Symptoms Cardiovascular: No Symptoms Gastrointestinal: No Symptoms Neurological: No Symptoms Other: Reports: None - Physical Assessment NPO Status Date: 12/08/16 Height: 1.83 m Weight: 112.037 kg ASA Class: 2 Mental Status: Alert & Oriented x3 Airway Class: Mallampati = 2 Dentition: Reports: Normal Dentition ROM/Head Extension: Full Lungs: Clear to Auscultation, Normal Respiratory Effort Cardiovascular: Regular Rate, Regular Rhythm - Allergies Allergies/Adverse Reactions: Allergies Allergy/AdvReac Type Severity Reaction Status Date / Time Penicillins Allergy Rash Verified 11/24/16 15:31 - Acknowledgements Anesthesia Type Planned: General Anesthesia Pt an Appropriate Candidate for the Planned Anesthesia: Yes Alternatives and Risks of Anesthesia Discussed w Pt/Guardian: Yes Pt/Guardian Understands and Agrees with Anesthesia Plan: Yes Additional Comments: pmh: MAYITO, hx of PUD/gastritis, hx of migraine, hx of MRSA in early from spider bite of hand. PreAnesthesia Questionnaire HEENT History: Reports: None Cardiovascular History: Respiratory History: Reports: None Gastrointestinal History: Reports: Other (See Below) Other Gastrointestinal History: occasional heartburn Genitourinary History: Reports: None Musculoskeletal History: Reports: None Neurological History: Reports: Migraines Psychiatric History: Reports: Anxiety Endocrine/Metabolic History: Reports: Obesity/BMI 30+ Immunologic History: Reports: None Other Immunologic History: hx MRSA Dermatologic History: Reports: Other (See Below) Other Dermatologic History: hx of resection of abd wall lipoma - Infectious Disease History Infectious Disease History: Reports: Chicken Pox - Past Surgical History Head Surgeries/Procedures: Reports: None HEENT Surgical History: Reports: None GI Surgical History: Reports: Appendectomy, Colonoscopy, Other (See Below) Other GI Surgeries/Procedures: anal fissurectomy, removal of abdominal wall lipoma, colonoscopy x3 Neurological Surgical History: Reports: Lumbar Spine Other Neurological Surgeries/Procedures: back fusion Musculoskeletal Surgical History: Reports: Other (See Below) Other Musculoskeletal Surgeries/Procedures:: L5-S1 surgery, left hand surgery - SUBSTANCE USE Smoking Status *Q: Former Smoker Second Hand Smoke Exposure: No Days Per Week of Alcohol Use: 0 Number of Drinks Per Day: 3 Total Drinks Per Week: 0 Recreational Drug Use History: No - HOME MEDS Home Medications: Home Meds Acetaminophen [Tylenol Extra Strength] 1 - 2 tab PO ASDIRECTED PRN 06/25/16 [ History] Melatonin 1 mg PO BEDTIME PRN 06/25/16 [History] traMADol HCl [Tramadol HCl] 50 mg PO ASDIRECTED PRN 12/04/16 [History] - CURRENT (IN HOUSE) MEDS Current Meds: Current Medications Hydrocodone Bitart/Acetaminophen ([place] 325-5 Mg) 1 - 2 tab PO Q4H PRN PRN Reason: Pain Clindamycin Phosphate 900 mg/ (Premix) 50 mls @ 100 mls/hr IV ONCALL QUYNH Lactated Ringer's (Ringers, Lactated) 1,000 mls @ 100 mls/hr IV ASDIRECTED QUYNH
[2016-12-09] MEDS ORDERED: Clindamycin Phosphate in D5W 900 MG in Premix Bag 1 BAG IV ONE ×2 (09:42)
[2016-12-09] MEDS ORDERED: Ondansetron 4 MG/2 ML SDV ONE (09:45)
[2016-12-09] MEDS ORDERED: Lidocaine 2% 5 ML SDV ONE (09:45)
[2016-12-09] MEDS ORDERED: Propofol 200 MG/20 ML SDV ONE (09:46)
[2016-12-09] MEDS ORDERED: fentaNYL 100 MCG/2 ML SDV ONE (09:46)
[2016-12-09] MEDS ORDERED: Midazolam 1 MG/ML 2 ML SDV ONE (09:46)
[2016-12-09] MEDS ORDERED: Lidocaine 1% 20 ML MDV ONE ×2 (09:56→12:03)
[2016-12-09] MEDS ORDERED: Ketorolac 30 MG/ML SDV ONE (10:35)
--- NOTE | 2016-12-09 10:57 | PCM.OPNOTE ---
- General Post-Op/Procedure Note Date of Surgery/Procedure: 12/09/16 Operative Procedure(s): left knee arthroscopy with decompression of ganglion cyst and chondroplast of the PFJ Post-Op Diagnosis: DJD L knee. ganglion cyst L knee PCL Anesthesia Technique: General LMA Primary Surgeon: Rupinder Briscoe EBL in mLs: 5 Condition: Good Free Text/Narrative:: tt=16 min #[id number]
[2016-12-09] MEDS: fentaNYL 100 MCG/2 ML SDV IVPUSH PRN ×3 (11:10→11:46)
[2016-12-09] MEDS ORDERED: HYDROmorphone 1 MG/ML Syringe IVPUSH ONE (11:24)
--- NOTE | 2016-12-09 11:26 | PCM.POSTAN ---
POST ANESTHESIA ASSESSMENT - MENTAL STATUS Mental Status: Alert, Oriented - RESPIRATORY Respiratory Status: Respiratory Rate WNL, Airway Patent, O2 Saturation Stable - CARDIOVASCULAR CV Status: Pulse Rate WNL, Blood Pressure Stable - GASTROINTESTINAL GI Status: No Symptoms - POST OP HYDRATION Hydration Status: Adequate & Stable
[2016-12-09] MEDS ORDERED: HYDROmorphone 2 MG/ML Syringe ONE (11:29)
[2016-12-09 13:57] VITALS: BP 11/67
--- NOTE | 2016-12-09 17:53 | OR ---
SURGEON: Rupinder Briscoe MD DATE OF PROCEDURE: 12/09/2016 PREOPERATIVE DIAGNOSIS: Left knee posterior cruciate ligament ganglion. POSTOPERATIVE DIAGNOSES: 1. Left knee posterior cruciate ligament ganglion. 2. Left knee degenerative joint disease. PROCEDURE: Left knee arthroscopy with decompression of ganglion cyst of the posterior cruciate ligament and chondroplasty of the patellofemoral joint. PROFESSIONAL SERVICES SPECIALIST: Dora Jaramillo RN. ANESTHESIA: General. ESTIMATED BLOOD LOSS: 5 mL. TOURNIQUET TIME: 16 minutes. COMPLICATIONS: None. DVT PROPHYLAXIS: Not indicated. IMPLANTS USED: None. BRIEF HISTORY: Rudi is a 36-year-old male, who has had complaint of progressive left knee pain. An MRI did show a ganglion cyst off the anterior aspect of the PCL. He had previously undergone a diagnostic/therapeutic injection which gave him short-term relief only. Due to his lack of response to conservative treatment, I did recommend surgical intervention. The risks and goals of procedure were discussed with the patient and were documented preoperatively. He agreed to proceed. DESCRIPTION OF PROCEDURE: The patient was properly identified and brought to the operating room. He was transferred from the OR cart and placed on the operating room table in supine position. General anesthesia was administered. After adequate anesthesia was obtained, a well-padded tourniquet was applied to the left lower extremity. The left lower extremity was then prepped in standard fashion using ChloraPrep solution. It was then sterilely draped. A time-out was performed to ensure correct site and procedure. Preoperative antibiotics were given. The surgical site had been marked preoperatively. An Esmarch was used to exsanguinate the left lower extremity and the tourniquet was inflated to 250 mmHg. A lateral portal arthrotomy was established. Blunt trocar and cannula were introduced into the suprapatellar pouch. Camera, inflow, and outflow were assembled. The suprapatellar pouch showed no significant synovitis. The patellofemoral joint was visualized. Degenerative changes were noted along the undersurface of the patella. The patella appeared to track centrally. I then extended down the lateral and medial gutter. No loose bodies were identified. I then entered the medial compartment. A medial portal arthrotomy was established. A blunt probe was inserted. The medial tibial plateau showed grade 2 chondromalacia along the posterior aspect. The medial femoral condyle showed grade 1 chondromalacia only. The meniscus was extensively probed and no tearing or instability was noted. I then entered the notch. Both the ACL and PCL were visualized. The ACL was probed and found to be stable. The ganglion cyst was palpable over the anterior aspect of the PCL. I then entered the lateral compartment. The joint surfaces showed minor softening only. The meniscus was probed and found to be stable. I then re-entered the notch. A spinal needle was inserted into the presumed ganglion. Serosanguineous fluid escaped from the cyst consistent with a fluid- filled structure. A 4.0 mm shaver was then used to debride the barry of the cyst back to the level of the PCL. There appeared to be complete decompression of the cyst at the completion. I then entered the patellofemoral joint. The undersurface of the patella was again inspected. Grade 2 to grade 3 chondromalacia was noted along the central portion of the patella. Chondroplasty was performed to remove the unstable portion of the cartilage. Instruments were then removed from the knee. The portal sites were closed with 3-0 nylon. Lidocaine 1% was injected along the portal tracts. Xeroform gauze was placed over the wound and a bulky dressing was applied. Tourniquet was then deflated. He was awakened from his anesthetic and transferred back to the operating room cart. He was brought to recovery room in stable condition. All needle and sponge counts were correct. LAM / NARESH /[id number]
== END 2016-12-09 13:50 | disposition home or self-care (01) ==
LOC: MW.SDS 07:45
PROVIDERS: ATTEND Orthopaedic Surgery
DX: M67.462 Ganglion, left knee (principal); M17.12 Unilateral primary osteoarthritis, left knee; N52.9 Male erectile dysfunction, unspecified; K21.9 Gastro-esophageal reflux disease without esophagitis; G43.109 Migraine with aura, not intractable, without status migrainosus; G47.33 Obstructive sleep apnea (adult) (pediatric); E66.9 Obesity, unspecified; Z87.891 Personal history of nicotine dependence; Z87.11 Personal history of peptic ulcer disease; Z86.14 Personal history of Methicillin resistant Staphylococcus aureus infection; Z86.010 Personal history of colon polyps; Z79.899 Other long term (current) drug therapy; Z88.0 Allergy status to penicillin; Z98.1 Arthrodesis status; Z90.49 Acquired absence of other specified parts of digestive tract; Z98.890 Other specified postprocedural states; Z68.33 Body mass index [BMI] 33.0-33.9, adult
CPT/HCPCS: 29877; A9270; J1170; J1885; J2250; J2405; J3010; J7120; 01400; 88304; J2704

== ENCOUNTER 2018-10-08 14:02 | Emergency (ER) | payer OTHER ==
[2018-10-08] MEDS ORDERED: Ondansetron 4 MG/2 ML SDV IVPUSH ONE (14:15)
[2018-10-08] MEDS ORDERED: Sodium Chloride 0.9% 2.5 ML Syringe FLUSH PRN (14:15)
[2018-10-08] MEDS ORDERED: Sodium Chloride 0.9% 10 ML Syringe FLUSH PRN (14:15)
[2018-10-08] MEDS ORDERED: HYDROmorphone 1 MG/ML Syringe IVPUSH ONE ×2 (14:15→14:56)
[2018-10-08] MEDS ORDERED: Sodium Chloride 0.9% 1,000 ML IV ONE (14:15)
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
[2018-10-08] MEDS ORDERED: HYDROmorphone 1 MG/ML Syringe ONE (14:52)
[2018-10-08 14:55] LABS: BLOOD UREA NITROGEN,BUN 20 mg/dL (7.0-18.0); CARBON DIOXIDE,CO2 22.2 mmol/L (21.0-32.0); CHLORIDE,CL 106 mmol/L (98-107); GLUCOSE RANDOM 95 mg/dL (74-106); LIPASE 103 U/L (73-393); POTASSIUM,K 3.9 mmol/L (3.5-5.1); SODIUM,NA 142 mmol/L (136-148)
[2018-10-08] MEDS ORDERED: Iopamidol 755 MG/ML 500 ML Multipack Bottle IVPUSH STA (15:00)
--- NOTE | 2018-10-08 15:15 | CR ---
INDICATION: Pain after trauma. COMPARISON: None available. FINDINGS: The left shoulder was examined a single AP view. The osseous structures are in anatomic alignment without fracture or dislocation. There is anatomic alignment of the humeral head and glenoid. The visualized chest is clear. IMPRESSION: Normal left shoulder on a single AP view. Dictated by Stanton Palmer MD @ Oct 08 2018 3:13PM Signed by Dr. Stanton Palmer @ Oct 08 2018 3:14PM
--- NOTE | 2018-10-08 15:19 | CR ---
INDICATION: HISTORY COMPARISON: None available. FINDINGS: The left elbow is examined with AP, lateral, and oblique views. There is posterior fracture-dislocation of the elbow, with dorsal dislocation of both the radial head and olecranon, with between 2.5 and 3.5 centimeters of posterior displacement of the olecranon and radial head in relationship to the humeral condyles. There is a fracture fragment located adjacent to the trochlea which is probably a fracture fragment arising from the coronoid process. I do not see a definite fracture of the radial head, although a radial head fracture cannot be excluded. There is no sign of fracture of the distal humerus or humeral condyles. The soft tissues are normal in appearance without sign of radio-opaque foreign body. No significant degenerative disease is seen. IMPRESSION: Fracture-dislocation of the elbow, with between 2.5 and 3.5 centimeters of posterior displacement of the olecranon and radial head. Fracture of what is probably the coronoid process. Dictated by Stanton Palmer MD @ Oct 08 2018 3:14PM Signed by Dr. Stanton Palmer @ Oct 08 2018 3:18PM
--- NOTE | 2018-10-08 15:21 | CT ---
INDICATION: Status post trauma. COMPARISON: None available. TECHNIQUE: CT examination of the head was performed with 3 mm thick axial sections without intravenous contrast. Images were obtained from the vertex of the skull through the skull base, and I examined the images with the brain and bone windows. Please note that all CT scans at this facility use dose modulation, iterative reconstruction, and/or weight-based dosing when appropriate to reduce radiation dose to as low as reasonably achievable. FINDINGS: : The brain is normal in appearance for the patient`s age on today`s study, with no sign of mass lesion, mass effect, hemorrhage, or edema. The ventricles and sulci are normal in appearance for the patient`s age. The visualized portions of the orbits are normal in appearance. There is opacification of posterior ethmoid air cells bilaterally from mild chronic sinusitis. Mucous retention cysts are seen in the inferior maxillary sinuses bilaterally. The rest of the visualized portions of the paranasal sinuses and mastoids are clear. The osseous structures are normal in their appearance with no sign of abnormality in the skull base or calvarium. IMPRESSION: Normal noncontrast CT of the head for the patient`s age. No sign of closed head injury. Please note that all CT scans at this facility use dose modulation, iterative reconstruction, and/or weight-based dosing when appropriate to reduce radiation dose to as low as reasonably achievable. Dictated by Stanton Palmer MD @ Oct 08 2018 3:18PM Signed by Dr. Stanton Palmer @ Oct 08 2018 3:20PM
--- NOTE | 2018-10-08 15:26 | CT ---
INDICATION: Status post trauma. Neck pain. COMPARISON: None available TECHNIQUE: CT examination of the cervical spine is performed without contrast using spiral technique. 2 mm thick axial, sagittal and coronal reconstructions were made. Please note that all CT scans at this facility use dose modulation, iterative reconstruction, and/or weight-based dosing when appropriate to reduce radiation dose to as low as reasonably achievable. FINDINGS: : There is no sign of fracture or subluxation. The cervical vertebral bodies and intervertebral discs are normal in height and are in anatomic alignment. There is no sign of prevertebral soft tissue swelling. The airway structures are normal in appearance. The visualized skull base is normal in appearance. Brain detail is extremely limited by the use of bone technique, but no gross abnormality is seen. The apices of the lungs are clear. IMPRESSION: Normal CT of the cervical spine with no sign of acute injury. Please note that all CT scans at this facility use dose modulation, iterative reconstruction, and/or weight-based dosing when appropriate to reduce radiation dose to as low as reasonably achievable. Dictated by Stanton Palmer MD @ Oct 08 2018 3:18PM Signed by Dr. Stanton Palmer @ Oct 08 2018 3:25PM
[2018-10-08] MEDS ORDERED: HYDROmorphone 2 MG/ML Syringe IV STA (15:45)
--- NOTE | 2018-10-08 15:45 | CT ---
INDICATION: Trauma TECHNIQUE: CT chest was acquired with 100 cc Isovue IV contrast. COMPARISON: July 21, 2014 FINDINGS: Cardiovascular structures: Heart size is normal. Thoracic aorta and main pulmonary artery are normal in caliber. Mediastinum and adebayo: No mass or adenopathy. Lungs: Clear. Pleura and pericardium: No effusions. Chest wall and axilla: No mass or adenopathy. Upper abdomen: Unremarkable. Bones: No significant findings. IMPRESSION: Unremarkable chest CT. Please note that all CT scans at this facility use dose modulation, iterative reconstruction, and/or weight-based dosing when appropriate to reduce radiation dose to as low as reasonably achievable. Dictated by Albertina Escobar MD @ Oct 08 2018 3:43PM Signed by Dr. Albertina Escobar @ Oct 08 2018 3:43PM
--- NOTE | 2018-10-08 15:52 | CT ---
INDICATION: Trauma TECHNIQUE: CT abdomen and pelvis acquired with 100 cc Isovue IV contrast. COMPARISON: None FINDINGS: Lower chest: Unremarkable. Liver: Unremarkable. Spleen: Unremarkable. Pancreas: Unremarkable. Gallbladder and bile ducts: Unremarkable. Adrenal glands: Unremarkable. Kidneys: Unremarkable. GI tract: Unremarkable. Vascular structures: Unremarkable. Lymph nodes: Unremarkable. Miscellaneous: Unremarkable. No free air or significant free fluid. Pelvic Organs: Unremarkable. Bones: Internal fixation hardware at L5-S1. No acute fracture. IMPRESSION: No acute injury in the abdomen or pelvis. Internal fixation hardware at L5-S1. Please note that all CT scans at this facility use dose modulation, iterative reconstruction, and/or weight-based dosing when appropriate to reduce radiation dose to as low as reasonably achievable. Dictated by Albertina Escobar MD @ Oct 08 2018 3:36PM Signed by Dr. Albertina Escobar @ Oct 08 2018 3:49PM
[2018-10-08] MEDS ORDERED: Midazolam 1 MG/ML 2 ML SDV ONE (16:04)
[2018-10-08] MEDS ORDERED: Propofol 200 MG/20 ML SDV ONE (16:05)
[2018-10-08] MEDS ORDERED: fentaNYL 100 MCG/2 ML SDV ONE (16:05)
--- NOTE | 2018-10-08 16:29 | PCM.PREANE ---
Preanesthetic Assessment - Anesthesia/Transfusion/Family Hx Anesthesia History: Prior Anesthesia Without Reaction Type of Anesthesia Reaction: Allergy Other Type of Anesthesia Reaction Comment: states he is slow waking up, after colonoscopy Family History of Anesthesia Reaction: No Transfusion History: No Prior Transfusion(s) - Review of Systems General: No Symptoms Pulmonary: No Symptoms Cardiovascular: No Symptoms Gastrointestinal: Other (acid reflux) Neurological: No Symptoms Other: Reports: None - Physical Assessment NPO Status Date: 10/08/18 (had coffee this morning and a soda earlier this afternoon) Pulse: 78 O2 Sat by Pulse Oximetry: 99 Respiratory Rate: 16 Blood Pressure: 125/80 Temperature: 36.2 C Height: 6 ft Weight: 230 kg (pounds) ASA Class: 2E Mental Status: Alert & Oriented x3 Dentition: Reports: Normal Dentition ROM/Head Extension: Full Lungs: Clear to Auscultation, Normal Respiratory Effort Cardiovascular: Regular Rate, Regular Rhythm - Lab Values: Laboratory Last Values WBC 11.54 K/uL (4.0-11.0) H 10/08/18 14:26 RBC 5.05 M/uL (4.50-5.90) 10/08/18 14:26 Hgb 15.7 g/dL (13.0-17.0) 10/08/18 14:26 Hct 46.0 % (38.0-50.0) 10/08/18 14:26 MCV 91.1 fL (80.0-98.0) 10/08/18 14:26 MCH 31.1 pg (27.0-32.0) 10/08/18 14:26 MCHC 34.1 g/dL (31.0-37.0) 10/08/18 14:26 RDW Std Deviation 43.1 fl (28.0-62.0) 10/08/18 14:26 RDW Coeff of [place] 13 % (11.0-15.0) 10/08/18 14:26 Plt Count 274 K/uL (150-400) 10/08/18 14:26 MPV 9.50 fL (7.40-12.00) 10/08/18 14:26 Neut % (Auto) 57.2 % (48.0-80.0) 10/08/18 14:26 Lymph % (Auto) 30.8 % (16.0-40.0) 10/08/18 14:26 [place] % (Auto) 10.7 % (0.0-15.0) 10/08/18 14:26 Eos % (Auto) 1.0 % (0.0-7.0) 10/08/18 14:26 Baso % (Auto) 0.3 % (0.0-1.5) 10/08/18 14:26 Neut # (Auto) 6.6 K/uL (1.4-5.7) H 10/08/18 14:26 Lymph # (Auto) 3.6 K/uL (0.6-2.4) H 10/08/18 14:26 [place] # (Auto) 1.2 K/uL (0.0-0.8) H 10/08/18 14:26 Eos # (Auto) 0.1 K/uL (0.0-0.7) 10/08/18 14:26 Baso # (Auto) 0.0 K/uL (0.0-0.1) 10/08/18 14:26 Nucleated RBC % 0.0 /100WBC 10/08/18 14:26 Nucleated RBCs # 0 K/uL 10/08/18 14:26 INR 0.98 10/08/18 14:26 Sodium 142 mmol/L (136-148) 10/08/18 14:26 Potassium 3.9 mmol/L (3.5-5.1) 10/08/18 14:26 Chloride 106 mmol/L (98-107) 10/08/18 14:26 Carbon Dioxide 22.2 mmol/L (21.0-32.0) 10/08/18 14:26 BUN 20 mg/dL (7.0-18.0) H 10/08/18 14:26 Creatinine 1.2 mg/dL (0.8-1.3) 10/08/18 14:26 Est Cr Clr Drug Dosing TNP 10/08/18 14:26 Estimated GFR (MDRD) > 60.0 ml/min 10/08/18 14:26 Glucose 95 mg/dL (74-106) 10/08/18 14:26 Calcium 9.4 mg/dL (8.5-10.1) 10/08/18 14:26 Total Bilirubin 0.3 mg/dL (0.2-1.0) 10/08/18 14:26 AST 15 IU/L (15-37) 10/08/18 14:26 ALT 30 IU/L (14-63) 10/08/18 14:26 Alkaline Phosphatase 60 U/L (46-116) 10/08/18 14:26 Total Protein 7.3 g/dL (6.4-8.2) 10/08/18 14:26 Albumin 3.9 g/dL (3.4-5.0) 10/08/18 14:26 Globulin 3.4 g/dL (2.6-4.0) 10/08/18 14:26 Albumin/Globulin Ratio 1.1 (0.9-1.6) 10/08/18 14:26 Lipase 103 U/L (73-393) 10/08/18 14:26 - Allergies Allergies/Adverse Reactions: Allergies Allergy/AdvReac Type Severity Reaction Status Date / Time Penicillins Allergy Rash Verified 11/24/16 15:31 - Anesthesia Plan Pre-Op Medication Ordered: None - Acknowledgements Anesthesia Type Planned: MAC Pt an Appropriate Candidate for the Planned Anesthesia: Yes Alternatives and Risks of Anesthesia Discussed w Pt/Guardian: Yes Pt/Guardian Understands and Agrees with Anesthesia Plan: Yes PreAnesthesia Questionnaire HEENT History: Reports: None Cardiovascular History: Respiratory History: Reports: None Gastrointestinal History: Reports: Other (See Below) Other Gastrointestinal History: occasional heartburn Genitourinary History: Reports: None Musculoskeletal History: Reports: None, Other (See Below) (L5-S1 surgery) Neurological History: Reports: Migraines Psychiatric History: Reports: Anxiety Endocrine/Metabolic History: Reports: Obesity/BMI 30+ Immunologic History: Reports: None Other Immunologic History: hx MRSA Dermatologic History: Reports: Other (See Below) Other Dermatologic History: hx of resection of abd wall lipoma - Infectious Disease History Infectious Disease History: Reports: Chicken Pox - Past Surgical History Head Surgeries/Procedures: Reports: None HEENT Surgical History: Reports: None GI Surgical History: Reports: Appendectomy, Colonoscopy, Other (See Below) Other GI Surgeries/Procedures: anal fissurectomy, removal of abdominal wall lipoma, colonoscopy x3 Neurological Surgical History: Reports: Lumbar Spine Other Neurological Surgeries/Procedures: back fusion Musculoskeletal Surgical History: Reports: Other (See Below) Other Musculoskeletal Surgeries/Procedures:: L5-S1 surgery, left hand surgery - HOME MEDS Home Medications: Home Meds Melatonin 1 mg PO BEDTIME PRN 06/25/16 [History] traMADol HCl [Tramadol HCl] 50 mg PO ASDIRECTED PRN 12/04/16 [History] Acetaminophen/HYDROcodone [[place] 325-5 MG] 1 - 2 tab PO Q4H PRN #80 tablet 12/09 [Rx] - CURRENT (IN HOUSE) MEDS Current Meds: Current Medications Sodium Chloride (Saline Flush) 10 ml FLUSH ASDIRECTED PRN PRN Reason: Keep Vein Open Sodium Chloride (Saline Flush) 2.5 ml FLUSH ASDIRECTED PRN PRN Reason: Keep Vein Open Discontinued Medications Fentanyl (Sublimaze) Confirm Administered Dose 100 mcg .ROUTE .STK-MED ONE Stop: 10/08/18 16:06 Hydromorphone HCl (Dilaudid) 1 mg IVPUSH ONETIME ONE Stop: 10/08/18 14:16 Last Admin: 10/08/18 14:22 Dose: 1 mg Hydromorphone HCl (Dilaudid) Confirm Administered Dose 1 mg .ROUTE .STK-MED ONE Stop: 10/08/18 14:53 Last Admin: 10/08/18 15:14 Dose: Not Given Hydromorphone HCl (Dilaudid) 1 mg IVPUSH ONETIME ONE Stop: 10/08/18 14:57 Last Admin: 10/08/18 14:57 Dose: 1 mg Sodium Chloride (Normal Saline) 1,000 mls @ 999 mls/hr IV STAT ONE Stop: 10/08/18 15:15 Last Admin: 10/08/18 14:27 Dose: 999 mls/hr Iopamidol (Isovue Multipack-370 (76%)) 100 ml IVPUSH ONETIME STA Stop: 10/08/18 15:01 Last Admin: 10/08/18 15:01 Dose: 100 ml Midazolam HCl (Versed 1 Mg/Ml) Confirm Administered Dose 2 mg .ROUTE .STK-MED ONE Stop: 10/08/18 16:05 Ondansetron HCl (Zofran) 4 mg IVPUSH ONETIME ONE Stop: 10/08/18 14:16 Last Admin: 10/08/18 14:22 Dose: 4 mg Propofol (Diprivan 20 Ml) Confirm Administered Dose 200 mg .ROUTE .[facility] ONE Stop: 10/08/18 16:06
--- NOTE | 2018-10-08 16:34 | PCM.POSTAN ---
POST ANESTHESIA ASSESSMENT - MENTAL STATUS Mental Status: Alert, Oriented - VITAL SIGNS Pulse Rate: 85 SaO2: 98 Resp Rate: 18 Blood Pressure: 140/90 - RESPIRATORY Respiratory Status: Respiratory Rate WNL, O2 Saturation Stable, Supplemental Oxygen - CARDIOVASCULAR CV Status: Pulse Rate WNL, Blood Pressure Stable - GASTROINTESTINAL GI Status: No Symptoms - POST OP HYDRATION Hydration Status: Adequate & Stable
--- NOTE | 2018-10-08 16:54 | PCM48HPAN ---
Post Anesthesia Note - EVALUATION WITHIN 48HRS OF ANESTHETIC Vital Signs in Normal Range: Yes Patient Participated in Evaluation: Yes Respiratory Function Stable: Yes Airway Patent: Yes Cardiovascular Function Stable: Yes Hydration Status Stable: Yes Pain Control Satisfactory: Yes Nausea and Vomiting Control Satisfactory: Yes Mental Status Recovered: Yes Pulse Rate: 85 SaO2: 98 Resp Rate: 18 Temperature: 36.2 C Blood Pressure: 140/90 - COMMENTS/OBSERVATIONS Free Text/Narrative:: no anesthesia problems
--- NOTE | 2018-10-08 17:33 | CR ---
Indication: Fracture, post reduction Technique: Two views of the elbow Comparison: Left elbow 10/08/2018 aunt 2:20 p.m. Findings/Impression: There is improved alignment of the radial head and olecranon process status post reduction. Fracture fragment is again noted in the joint. Dictated by Laureano Baker MD @ Oct 08 2018 5:30PM Signed by Dr. Laureano Baker @ Oct 08 2018 5:30PM
--- NOTE | 2018-10-08 17:35 | CR ---
Indication: Trauma Technique: Two views of the left shoulder Comparison: None Findings/Impression: There is suboptimal patient positioning, limiting evaluation. No fracture is demonstrated. There may be posterior displacement of the humeral head relative to the glenoid fossa. Repeat study with axillary view is recommended for better assessment. Dictated by Laureano Baker MD @ Oct 08 2018 5:31PM Signed by Dr. Laureano Baker @ Oct 08 2018 5:33PM
[2018-10-08] MEDS ORDERED: Ketorolac 30 MG/ML SDV ONE (18:03)
[2018-10-08] MEDS ORDERED: Ketorolac 30 MG/ML SDV IVPUSH ONE (18:06)
[2018-10-08 18:26] VITALS: BP 129/88; PULSE 75
--- NOTE | 2018-10-08 18:28 | CR ---
INDICATION: Axillary view to rule out posterior dislocation. COMPARISON: Two-view examination from earlier today at 1635 hours FINDINGS: The left shoulder was examined with a single axillary view at 1756 hours. The osseous structures are in anatomic alignment without fracture or dislocation. There is anatomic alignment of the humeral head and glenoid. IMPRESSION: No sign of dislocation of the shoulder. No evidence of fracture on this axillary view. Dictated by Stanton Palmer MD @ Oct 08 2018 6:26PM Signed by Dr. Stanton Palmer @ Oct 08 2018 6:27PM
== END 2018-10-08 18:53 | disposition home or self-care (01) ==
LOC: MW.ED 14:02
DX: S52.022A Displaced fracture of olecranon process without intraarticular extension of left ulna, initial encounter for closed fracture (principal); S52.042A Displaced fracture of coronoid process of left ulna, initial encounter for closed fracture; S52.122A Displaced fracture of head of left radius, initial encounter for closed fracture; S16.1XXA Strain of muscle, fascia and tendon at neck level, initial encounter; Z88.0 Allergy status to penicillin; V59.9XXA Occupant (driver) (passenger) of pick-up truck or van injured in unspecified traffic accident, initial encounter
CPT/HCPCS: 24675; 36415; 70450; 71260; 72125; 73020; 73030; 73070; 73080; 74177; 80053; 83690; 85025; 85610; 93005; 96361; 96374; 96375; 96376; 99285; J1170; J1885; J2250; J2405; J2704; J3010; J7040; Q9967; 01730; 24600

== ENCOUNTER 2019-09-03 09:49 | Day surgery (SDC) | payer OTHER ==
[2019-09-03] MEDS ORDERED: Propofol 200 MG/20 ML SDV ONE (10:28)
[2019-09-03] MEDS ORDERED: Midazolam 1 MG/ML 2 ML SDV ONE (10:28)
[2019-09-03] MEDS ORDERED: Glycopyrrolate 0.2 MG/ML SDV ONE (10:30)
[2019-09-03] MEDS ORDERED: Lidocaine 2% 5 ML SDV ONE (10:30)
[2019-09-03] MEDS ORDERED: fentaNYL 50 MCG/ML SDV IVPUSH ONE ×2 (10:33→11:52)
[2019-09-03] MEDS ORDERED: fentaNYL 100 MCG/2 ML SDV ONE ×2 (10:36→11:22)
[2019-09-03 13:24] VITALS: PULSE 64
--- NOTE | 2019-09-03 13:25 | PCM.OPNOTE ---
- General Post-Op/Procedure Note Date of Surgery/Procedure: 09/03/19 Operative Procedure(s): egd w bx. colonoscopy w bx Findings: see Pre Op Diagnosis: BRBPR and gerd Post-Op Diagnosis: Same Anesthesia Technique: Moderate Sedation Primary Surgeon: Jose Francisco Aguilar Pathology: sent Complications: None Condition: Good
--- NOTE | 2019-09-03 13:28 | PCM.POSTAN ---
POST ANESTHESIA ASSESSMENT - MENTAL STATUS Mental Status: Alert, Oriented - VITAL SIGNS Vital Signs: Last Vital Signs Temp 36.7 C 09/03/19 10:00 Pulse 64 09/03/19 13:22 Resp 10 L 09/03/19 13:22 BP 114/67 09/03/19 13:22 Pulse Ox 95 09/03/19 13:22 - RESPIRATORY Respiratory Status: Respiratory Rate WNL, Airway Patent, O2 Saturation Stable - CARDIOVASCULAR CV Status: Pulse Rate WNL, Blood Pressure Stable - GASTROINTESTINAL GI Status: No Symptoms - PAIN Pain Score: 0 - POST OP HYDRATION Hydration Status: Adequate & Stable - OBSERVATIONS Free Text/Narrative:: No anesthesia problems
--- NOTE | 2019-09-03 13:32 | PCM.PREANE ---
Preanesthetic Assessment - Anesthesia/Transfusion/Family Hx Anesthesia History: Prior Anesthesia Reaction Other Type of Anesthesia Reaction Comment: states he is slow waking up, after colonoscopy Family History of Anesthesia Reaction: No Transfusion History: No Prior Transfusion(s) Intubation History: Unknown - Review of Systems General: No Symptoms Pulmonary: No Symptoms Cardiovascular: No Symptoms Gastrointestinal: Hematochezia, Other (acid reflux (severe), bloating) Neurological: No Symptoms Other: Reports: None - Physical Assessment NPO Status Date: 09/02/19 NPO Status Time: 23:00 Vital Signs: Last Vital Signs Temp 36.7 C 09/03/19 10:00 Pulse 64 09/03/19 13:22 Resp 10 L 09/03/19 13:22 BP 114/67 09/03/19 13:22 Pulse Ox 95 09/03/19 13:22 Height: 6 ft Weight: 117.934 kg ASA Class: 2 Mental Status: Alert & Oriented x3 Airway Class: Mallampati = 2 Dentition: Reports: Normal Dentition Thyro-Mental Finger Breadths: 3 Mouth Opening Finger Breadths: 3 ROM/Head Extension: Full Lungs: Clear to Auscultation, Normal Respiratory Effort Cardiovascular: Regular Rate, Regular Rhythm - Allergies Allergies/Adverse Reactions: Allergies Allergy/AdvReac Type Severity Reaction Status Date / Time bee venom protein (honey bee) Allergy Airway Verified 08/30/19 13:28 Tightness Penicillins Allergy Rash Verified 08/30/19 13:28 - Blood Blood Available: No - Anesthesia Plan Pre-Op Medication Ordered: None - Acknowledgements Anesthesia Type Planned: MAC Pt an Appropriate Candidate for the Planned Anesthesia: Yes Alternatives and Risks of Anesthesia Discussed w Pt/Guardian: Yes Pt/Guardian Understands and Agrees with Anesthesia Plan: Yes PreAnesthesia Questionnaire HEENT History: Reports: None Cardiovascular History: Respiratory History: Reports: None Gastrointestinal History: Reports: Colon Polyp, GERD Other Gastrointestinal History: occasional heartburn Genitourinary History: Reports: None Musculoskeletal History: Reports: Back Pain, Chronic, Fracture Other Musculoskeletal History: hx of dislocated elbow with fx Neurological History: Reports: Migraines Psychiatric History: Reports: Anxiety Endocrine/Metabolic History: Reports: Obesity/BMI 30+ (BMI 35.5) Immunologic History: Reports: None Other Immunologic History: hx MRSA Dermatologic History: Reports: Other (See Below) Other Dermatologic History: MRSA on spider bite of hand - Infectious Disease History Infectious Disease History: Reports: Chicken Pox - Past Surgical History Head Surgeries/Procedures: Reports: None HEENT Surgical History: Reports: None GI Surgical History: Reports: Appendectomy, Colonoscopy (3 years ago), EGD (3 years ago), Other (See Below) Other GI Surgeries/Procedures: Excision of anal fissure Neurological Surgical History: Reports: Lumbar Spine Other Neurological Surgeries/Procedures: back fusion Musculoskeletal Surgical History: Reports: Arthroscopic Knee, Other (See Below) Other Musculoskeletal Surgeries/Procedures:: debridement of soft tissue on hand (spider bite) and lipoma removed at unbilical area - SUBSTANCE USE Smoking Status *Q: Former Smoker Tobacco Use Within Last Twelve Months: No Recreational Drug Use History: No - HOME MEDS Home Medications: Home Meds Omeprazole Magnesium [Prilosec Otc] 20 mg PO QAM 08/30/19 [History] - CURRENT (IN HOUSE) MEDS Current Meds: Current Medications Lactated Ringer's (Ringers, Lactated) 1,000 mls @ 125 mls/hr IV ASDIRECTED QUYNH Last Admin: 09/03/19 10:25 Dose: 125 mls/hr Documented by: Discontinued Medications Fentanyl (Fentanyl) 50 mcg IVPUSH ONETIME ONE Stop: 09/03/19 10:34 Last Admin: 09/03/19 11:00 Dose: 50 mcg Documented by: Fentanyl (Sublimaze) Confirm Administered Dose 100 mcg .ROUTE .STK-MED ONE Stop: 09/03/19 10:37 Fentanyl (Sublimaze) Confirm Administered Dose 100 mcg .ROUTE .STK-MED ONE Stop: 09/03/19 11:23 Fentanyl (Fentanyl) 50 mcg IVPUSH ONETIME ONE Stop: 09/03/19 11:53 Last Admin: 09/03/19 12:16 Dose: 50 mcg Documented by: Glycopyrrolate (Robinul) Confirm Administered Dose 0.2 mg .ROUTE .STK-MED ONE Stop: 09/03/19 10:31 Lactated Ringer's (Ringers, Lactated) 1,000 mls @ 125 mls/hr IV ASDIRECTED QUYNH Lidocaine (Xylocaine-Mpf 2%) Confirm Administered Dose 5 ml .ROUTE .STK-MED ONE Stop: 09/03/19 10:31 Midazolam HCl (Versed 1 Mg/Ml) Confirm Administered Dose 2 mg .ROUTE .STK-MED ONE Stop: 09/03/19 10:29 Propofol (Diprivan 20 Ml) Confirm Administered Dose 600 mg .ROUTE .STK-MED ONE Stop: 09/03/19 10:29
[2019-09-03 13:33] VITALS: BP 122/83
--- NOTE | 2019-09-03 13:50 | PCM48HPAN ---
Post Anesthesia Note - EVALUATION WITHIN 48HRS OF ANESTHETIC Vital Signs in Normal Range: Yes Patient Participated in Evaluation: Yes Respiratory Function Stable: Yes Airway Patent: Yes Cardiovascular Function Stable: Yes Hydration Status Stable: Yes Pain Control Satisfactory: Yes Nausea and Vomiting Control Satisfactory: Yes Mental Status Recovered: Yes Vital Signs: Last Vital Signs Temp 36.2 C 09/03/19 13:28 Pulse 64 09/03/19 13:28 Resp 14 09/03/19 13:28 BP 122/83 09/03/19 13:28 Pulse Ox 96 09/03/19 13:28 - COMMENTS/OBSERVATIONS Free Text/Narrative:: No anesthesia problems
--- NOTE | 2019-09-03 15:55 | OR ---
SURGEON: Jose Francisco Aguilar MD DATE OF PROCEDURE: 09/03/2019 PREOPERATIVE DIAGNOSES: Bright red blood per rectum and acid reflux. POSTOPERATIVE DIAGNOSES: Esophagogastroduodenoscopy diagnoses are acid reflux and gastroesophageal reflux disease and colonoscopy diagnosis is colon polyp. PROCEDURES PERFORMED: Esophagogastroduodenoscopy with biopsy and colonoscopy with biopsy. DESCRIPTION OF PROCEDURE: EGD: The patient was taken to the endoscopy room, and with the WAX MOLDER, Diprivan was administered. A well-lubricated EGD scope was gently inserted through the oropharynx, down the esophagus, passing through the gastroesophageal junction, into the stomach. The mucosa was examined upon the passage. Any etiology will be noted. Once in the stomach, we continued to advance to the distal antrum, passed through the pylorus into the second portion of the duodenum. Again, the mucosa was examined for any abnormality and etiology. The scope was then retrieved back to the stomach and then retroflexed to look at the fundus of the stomach. If a biopsy was indicated, we will biopsy the antrum, body, and gastroesophageal junction. The air will be sucked out while the scope is retrieved to reduce the patient's discomfort. The patient tolerated the procedure well. There were no intraoperative complications. Dr. Aguilar was present through the whole procedure. Prior to surgery, a time-out had been called, the patient identified, procedure identified and antibiotic administered. The patient was taken to the endoscopy room. A time out was called, patient identified, and procedure identified. Diprivan was then administrated. Patient went from awake to sleep, hearing doctor talking or door closing is normal. Perineum inspection and digital examination were then performed. A well- lubricated colonoscope was gently inserted through the rectum, advanced past the rectosigmoid junction, the descending colon, splenic flexure, transverse colon, hepatic flexure, ascending colon, arrived to the cecum. Cecum was identified as dictated in the finding. Then the scope was carefully withdrawn while attention was paid to the mucosal surface for any abnormality. Air will be sucked out during the scope withdrawal. At the rectum, retroflexed to examine any rectal diseases, fistula or hemorrhoids. During mucosal examination, abnormality or polyp was noted; picture taken and biopsy performed. Patient tolerated procedure well. There were no intraoperative complications, and Dr. Aguilar was present throughout the whole procedure. INTRAOPERATIVE FINDINGS: EGD findings: 1. The patient is easily sedated with WAX MOLDER and Diprivan, the patient is soundly snoring. 2. Oropharynx and proximal esophagus are free of disease, stricture, inflammation, none of those. Distal esophagus at GE junction at 40 shows moderate amount of salmon-colored change, consistent with some acid reflux, moderate. Stomach rugae are normal in appearance. Antrum is normal and duodenum is grossly normal. Retroflexed look at the fundus of the stomach, the patient has a mild hiatal hernia. Biopsy done at antrum, body, GE junction at 40 and sucked out the gas while scope pulling out. During the whole study, there is no food, bile, blood, or ulcer observed, but moderate amount water in the stomach. Colonoscopy findings: 1. The patient is easily sedated with WAX MOLDER and Diprivan, the patient is soundly snoring. 2. Bowel prep is average with some liquid stool, no semi-formed stool. 3. Colon rather straightforward. Cecum indicated by ileocecal fold, one-to- one indentation, and appendiceal orifice. Light emittance is not observed and ScopeGuide was pointing south. Mucosa examined upon scope pulling out. The patient has one tiny polyp, around 2 mm, sessile, at cecum and removed with cold biopsy forceps, distance 130. Also, another polyp, slightly bigger, around 3 mm, at 25 cm when scope pulling out and both are removed with biopsy forceps. The patient does not have diverticulosis, mass, growth, inflammation, stricture, ulceration, AV malformation, none of those. The patient has some internal hemorrhoids, mild external hemorrhoids. It looks like he has some yeast infection on the gluteal crease, and we will discuss that in the office. The patient would benefit from repeat colonoscopy in 10 years from today or if clinically indicated otherwise. NORAH / NARESH /[id number]
== END 2019-09-03 14:00 | disposition home or self-care (01) ==
LOC: MW.SDS 09:49
PROVIDERS: ATTEND Surgery
DX: D12.0 Benign neoplasm of cecum (principal); K64.8 Other hemorrhoids; K64.4 Residual hemorrhoidal skin tags; K21.9 Gastro-esophageal reflux disease without esophagitis; E66.9 Obesity, unspecified; Z68.35 Body mass index [BMI] 35.0-35.9, adult; Z88.0 Allergy status to penicillin; Z91.030 Bee allergy status; Z87.891 Personal history of nicotine dependence; Z79.899 Other long term (current) drug therapy; Z86.010 Personal history of colon polyps; Z98.890 Other specified postprocedural states
CPT/HCPCS: 43239; 45380; J2001; J2250; J2704; J3010; J3490; J7120; 88305; 88312

== ENCOUNTER 2021-12-30 13:02 | Emergency (ER) | payer OTHER ==
[2021-12-30 14:13] LABS: CORONAVIRUS COVID-19 NAA NEGATIVE (NEGATIVE); INFLUENZA A NAA NEGATIVE (NEGATIVE); INFLUENZA B NAA NEGATIVE (NEGATIVE)
[2021-12-30 15:22] VITALS: BP 142/98; PULSE 83
== END 2021-12-30 15:23 | disposition home or self-care (01) ==
LOC: MW.ED 13:02
DX: R05.9 Cough, unspecified (principal); Z20.822 Contact with and (suspected) exposure to COVID-19; Z88.0 Allergy status to penicillin
CPT/HCPCS: 0240U; 71046; 99283; 99282

== ENCOUNTER 2022-07-07 15:14 | Emergency (ER) | payer OTHER ==
[2022-07-07] MEDS ORDERED: diphenhydrAMINE 50 MG/ML SDV IVPUSH STA (15:18)
[2022-07-07] MEDS ORDERED: EPINEPHrine 1 MG/1 ML Amp IM STA (15:18)
[2022-07-07] MEDS ORDERED: Famotidine 20 MG/2 ML SDV IVPUSH STA (15:19)
[2022-07-07] MEDS ORDERED: Sodium Chloride 0.9% 2.5 ML Syringe FLUSH PRN (15:19)
[2022-07-07] MEDS ORDERED: Sodium Chloride 0.9% 10 ML Syringe FLUSH PRN (15:19)
[2022-07-07] MEDS ORDERED: methylPREDNISolone Sodium Succinate 125 MG/2 ML SDV IVPUSH STA (15:19)
[2022-07-07] MEDS ORDERED: Sodium Chloride 0.9% 1,000 ML IV STA (15:19)
[2022-07-07] MEDS ORDERED: Ketorolac 30 MG/ML SDV IVPUSH ONE (15:41)
[2022-07-07] MEDS ORDERED: fentaNYL 50 MCG/ML SDV IVPUSH ONE (16:28)
[2022-07-07] MEDS ORDERED: Acetaminophen 325 MG Tab PO ONE (17:12)
[2022-07-07] MEDS ORDERED: LORazepam 2 MG/ML SDV IVPUSH ONE (17:12)
[2022-07-07] MEDS ORDERED: Acetaminophen 325 MG/10.15 ML ML PO ONE (17:29)
[2022-07-07 18:18] VITALS: BP 125/71; PULSE 95
== END 2022-07-07 18:07 | disposition home or self-care (01) ==
LOC: MW.ED 15:14
DX: T63.441A Toxic effect of venom of bees, accidental (unintentional), initial encounter (principal); K21.9 Gastro-esophageal reflux disease without esophagitis; E66.9 Obesity, unspecified; Z91.030 Bee allergy status; Z88.0 Allergy status to penicillin; Z79.899 Other long term (current) drug therapy; Z68.35 Body mass index [BMI] 35.0-35.9, adult
CPT/HCPCS: 96372; 96374; 96375; 99283; A9270; J0171; J1200; J1885; J2930; J3010; J3490; J7030; 99284

== ENCOUNTER 2022-11-12 21:19 | Emergency (ER) | payer OTHER ==
[2022-11-12 21:56] LABS: BASOPHILS ABSOLUTE AUTO 0.1 K/uL (0.0-0.1); BASOPHILS PERCENT AUTO 0.6 % (0.0-1.5); EOSINOPHILS ABSOLUTE AUTO 0.5 K/uL (0.0-0.7); EOSINOPHILS PERCENT AUTO 4.3 % (0.0-7.0); HEMATOCRIT 42.5 % (38.0-50.0); HEMOGLOBIN 14.5 g/dL (13.0-17.0); LYMPHOCYTES ABSOLUTE AUTO 3.7 K/uL (0.6-2.4); LYMPHOCYTES PERCENT AUTO 30.4 % (16.0-40.0); MEAN CORPUSCULAR HEMOGLOBIN 30.7 pg (27.0-32.0); MEAN CORPUSCULAR HGB CONC 34.1 g/dL (31.0-37.0); MONOCYTES ABSOLUTE AUTO 1.1 K/uL (0.0-0.8); MONOCYTES PERCENT AUTO 8.9 % (0.0-15.0); NEUTROPHILS ABSOLUTE AUTO 6.8 K/uL (1.4-5.7); NEUTROPHILS PERCENT AUTO 55.8 % (48.0-80.0); NRBC ABSOLUTE 0 K/uL; PLATELET COUNT,PLT 376 K/uL (150-400); RED BLOOD CELL COUNT 4.72 M/uL (4.50-5.90); WHITE BLOOD CELL COUNT,WBC 12.18 K/uL (4.0-11.0)
[2022-11-12] MEDS ORDERED: Lactated Ringers 1,000 ML IV SCH (22:00)
[2022-11-12 22:07] LABS: A/G RATIO 0.8 (0.9-1.6); ALANINE AMINOTRANSFERASE,ALT 41 IU/L (14-63); ALBUMIN 3.1 g/dL (3.4-5.0); ALKALINE PHOSPHATASE 74 U/L (46-116); BILIRUBIN TOTAL 0.3 mg/dL (0.2-1.0); BLOOD UREA NITROGEN,BUN 19 mg/dL (7.0-18.0); CARBON DIOXIDE,CO2 27.3 mmol/L (21.0-32.0); CHLORIDE,CL 101 mmol/L (98-107); CREATININE 1.6 mg/dL (0.8-1.3); EST CRCL DRUG DOSING (CG) 66.69 mL/min; GLUCOSE RANDOM 149 mg/dL (74-106); POTASSIUM,K 4.1 mmol/L (3.5-5.1); PROTEIN TOTAL,TP 6.8 g/dL (6.4-8.2); SODIUM,NA 140 mmol/L (136-148)
[2022-11-12 22:22] LABS: ESTIMATED GFR 55 mL/min (>60)
[2022-11-12] MEDS ORDERED: Albuterol 0.083% 2.5 MG/3 ML Neb Soln NEB ONE (22:28)
[2022-11-12 22:53] LABS: ASPARTATE AMNIOTRANSFERASE,AST 26 IU/L (15-37)
[2022-11-13] MEDS ORDERED: Albuterol 8 GM Inhaler INH ONE (01:26)
[2022-11-13 01:50] VITALS: BP 125/68; PULSE 69
== END 2022-11-13 01:49 | disposition home or self-care (01) ==
LOC: MW.ED 21:19
DX: R55 Syncope and collapse (principal); K21.9 Gastro-esophageal reflux disease without esophagitis; E66.9 Obesity, unspecified; Z68.33 Body mass index [BMI] 33.0-33.9, adult; Z91.030 Bee allergy status; Z88.0 Allergy status to penicillin
CPT/HCPCS: 36415; 70450; 71045; 80053; 84484; 85025; 85379; 93005; 96360; 99285; A9270; J7120; 93010; 99283; J7620-GY

== ENCOUNTER 2023-03-14 10:35 | Day surgery (SDC) | payer OTHER ==
[~2023-03-14 10:35] MED LIST changes: +propofoL 50 ML ONE
[2023-03-14 13:18] VITALS: BP 108/74; PULSE 76
== END 2023-03-14 13:24 | disposition home or self-care (01) ==
LOC: MW.SDS 10:35
PROVIDERS: ATTEND Surgery
DX: K92.1 Melena (principal); K64.8 Other hemorrhoids; K21.9 Gastro-esophageal reflux disease without esophagitis; J44.9 Chronic obstructive pulmonary disease, unspecified; E66.9 Obesity, unspecified; Z68.37 Body mass index [BMI] 37.0-37.9, adult; Z87.891 Personal history of nicotine dependence; Z79.899 Other long term (current) drug therapy; Z88.0 Allergy status to penicillin; Z91.030 Bee allergy status
CPT/HCPCS: 45378; J2704; J7120; 00811

== ENCOUNTER 2023-06-03 12:00 | Emergency (ER) | payer OTHER ==
[2023-06-03] MEDS: Ibuprofen 600 MG Tab PO ONE (12:54)
[2023-06-03] MEDS: traMADol 50 MG Tab PO ONE (12:54)
[2023-06-03 13:05] VITALS: BP 152/87; PULSE 86
== END 2023-06-03 13:08 | disposition home or self-care (01) ==
LOC: MW.ED 12:00
DX: M25.562 Pain in left knee (principal); J44.9 Chronic obstructive pulmonary disease, unspecified; K21.9 Gastro-esophageal reflux disease without esophagitis; E66.9 Obesity, unspecified; Z88.0 Allergy status to penicillin; Z91.030 Bee allergy status; Z79.899 Other long term (current) drug therapy; Z90.49 Acquired absence of other specified parts of digestive tract; Z68.36 Body mass index [BMI] 36.0-36.9, adult; Z75.8 Other problems related to medical facilities and other health care
CPT/HCPCS: 99283; A9270

== ENCOUNTER 2023-10-10 16:19 | Emergency (ER) | payer OTHER, MEDICAID ==
[2023-10-10 16:51] VITALS: BP 124/76; PULSE 70
[2023-10-10] MEDS: Ketorolac 30 MG/ML SDV IM STA (18:55)
[2023-10-10] MEDS: Orphenadrine 60 MG/2 ML Inj IM STA (18:55)
== END 2023-10-10 20:03 | disposition home or self-care (01) ==
LOC: MW.ED 16:19
DX: S29.019A Strain of muscle and tendon of unspecified wall of thorax, initial encounter (principal); J44.9 Chronic obstructive pulmonary disease, unspecified; K21.9 Gastro-esophageal reflux disease without esophagitis; E66.9 Obesity, unspecified; Z90.49 Acquired absence of other specified parts of digestive tract; Z88.0 Allergy status to penicillin; Z91.030 Bee allergy status; Z75.8 Other problems related to medical facilities and other health care; Z68.33 Body mass index [BMI] 33.0-33.9, adult; X58.XXXA Exposure to other specified factors, initial encounter
CPT/HCPCS: 73010; 73030; 96372; 99283; J1885; J2360

== ENCOUNTER 2024-02-10 10:54 | Emergency (ER) | payer MEDICAID, OTHER ==
[2024-02-10 11:58] LABS: BASOPHILS ABSOLUTE AUTO 0.07 K/uL (0.00-0.20); BASOPHILS PERCENT AUTO 0.7 % (0.0-1.0); EOSINOPHILS ABSOLUTE AUTO 0.12 K/uL (0.00-0.45); EOSINOPHILS PERCENT AUTO 1.2 % (0.0-6.0); HEMATOCRIT 45.7 % (42.0-52.0); HEMOGLOBIN 15.7 g/dL (14.0-18.0); IMMATURE GRAN ABSOLUTE AUTO 0.04 K/uL (0.00-0.05); IMMATURE GRAN PERCENT AUTO 0.4 % (0.0-0.4); LYMPHOCYTES ABSOLUTE AUTO 2.08 K/uL (1.00-4.80); MEAN CORPUSCULAR HEMOGLOBIN 30.4 pg (28.0-32.0); MEAN CORPUSCULAR HGB CONC 34.4 g/dL (32.0-36.0); MEAN CORPUSCULAR VOLUME 88.4 fL (83.0-99.0); MEAN PLATELET VOLUME 9.1 fL (9.4-12.4); MONOCYTES ABSOLUTE AUTO 1.01 K/uL (0.00-0.80); MONOCYTES PERCENT AUTO 10.2 % (0.0-8.0); NEUTROPHILS ABSOLUTE AUTO 6.58 K/uL (1.80-7.70); NEUTROPHILS PERCENT AUTO 66.5 % (41.0-71.0); PLATELET COUNT,PLT 355 K/uL (150-400); RED BLOOD CELL COUNT 5.17 M/uL (4.52-5.90)
[2024-02-10] MEDS: Sodium Chloride 0.9% 1,000 ML IV ONE (12:01)
[2024-02-10] MEDS: LORazepam 2 MG/ML SDV IVPUSH ONE ×2 (12:01→13:29)
[2024-02-10] MEDS: cloNIDine 0.1 MG Tab PO ONE (12:01)
[2024-02-10 12:46] LABS: ACETAMINOPHEN <2.0 ug/mL; ALANINE AMINOTRANSFERASE,ALT 29 IU/L (14-63); ALBUMIN 3.6 g/dL (3.4-5.0); ALKALINE PHOSPHATASE 82 U/L (46-116); ASPARTATE AMNIOTRANSFERASE,AST 11 IU/L (15-37); BILIRUBIN TOTAL 0.2 mg/dL (0.2-1.0); BLOOD UREA NITROGEN,BUN 19 mg/dL (7.0-18.0); CALCIUM 9.2 mg/dL (8.5-10.1); CHLORIDE,CL 106 mmol/L (98-107); CREATININE 1.2 mg/dL (0.8-1.3); EST CRCL DRUG DOSING (CG) 88.02 mL/min; ETHANOL BLOOD MEDICAL <3 mg/dL; GLUCOSE RANDOM 101 mg/dL (74-106); POTASSIUM,K 4.2 mmol/L (3.5-5.1); PROTEIN TOTAL,TP 7.2 g/dL (6.4-8.2); SALICYLATE 2.7 mg/dL (0.0-20.0); SODIUM,NA 142 mmol/L (136-148); TSH ULTRASENSITIVE 0.63 uIU/mL (0.36-3.74)
[2024-02-10 12:48] LABS: ESTIMATED GFR 77 mL/min (>60)
[2024-02-10 13:42] LABS: AMPHETAMINES SCREEN, URINE NEGATIVE (CUTOFF=500); BARBITURATE SCREEN,URINE NEGATIVE (CUTOFF=200); BENZODIAZEPINES SCREEN,URINE NEGATIVE (CUTOFF=150); BUPRENORPHINE SCREEN,URINE NEGATIVE (CUTOFF=10); METHADONE SCREEN, URINE NEGATIVE (CUTOFF=200); METHAMPHETAMINES SCREEN, URINE NEGATIVE (CUTOFF=500); OXYCODONE SCREEN,URINE NEGATIVE (CUT0FF=100); PCP SCREEN,URINE NEGATIVE (CUTOFF=25); THC SCREEN,URINE 20 NG/ML NEGATIVE (CUTOFF=50)
[2024-02-10 13:44] LABS: APPEARANCE,URINE CLEAR; BILIRUBIN,URINE NEGATIVE (NEGATIVE); COLOR,URINE YELLOW; GLUCOSE,URINE NEGATIVE (NEGATIVE); KETONES,URINE NEGATIVE (NEGATIVE); LEUKOCYTE ESTERASE,URINE NEGATIVE (NEGATIVE); NITRITE,URINE NEGATIVE (NEGATIVE); OCCULT BLOOD,URINE NEGATIVE (NEGATIVE); PROTEIN,URINE NEGATIVE (NEGATIVE); UROBILINOGEN,URINE 0.2 EU/dL (<2.0)
[2024-02-10 13:46] LABS: BACTERIA,URINE FEW (NEGATIVE); EPITHELIAL CELLS,URINE OCCASIONAL (NONE-FEW); RBC,URINE 0-2 (0-2/HPF); WBC,URINE 0-2 (0-5/HPF)
[2024-02-10 15:15] VITALS: BP 127/79; PULSE 91
== END 2024-02-10 15:13 | disposition home or self-care (01) ==
LOC: MW.ED 10:54
DX: F11.23 Opioid dependence with withdrawal (principal); J44.9 Chronic obstructive pulmonary disease, unspecified; E66.9 Obesity, unspecified; Z88.0 Allergy status to penicillin; Z91.030 Bee allergy status; Z68.34 Body mass index [BMI] 34.0-34.9, adult
CPT/HCPCS: 36415; 80053; 80143; 80179; 80305; 80307; 81001; 83735; 84443; 85025; 93005; 96361; 96374; 96376; 99285; A9270; J2060; J7030

== ENCOUNTER 2024-06-23 08:48 | Day surgery (SDC) | payer MEDICAID, OTHER ==
[2024-06-23] MEDS ORDERED: Propofol 200 MG/20 ML SDV ONE ×2 (12:13→12:31)
[2024-06-23] MEDS ORDERED: Lidocaine 2% 5 ML SDV ONE (12:17)
[2024-06-23] MEDS: Lactated Ringers 1,000 ML IV SCH (12:51)
[2024-06-23 13:47] VITALS: BP 109/57; PULSE 76
== END 2024-06-23 13:13 | disposition home or self-care (01) ==
LOC: MW.SDS 08:48
PROVIDERS: ATTEND Surgery
DX: K29.50 Unspecified chronic gastritis without bleeding (principal); K21.9 Gastro-esophageal reflux disease without esophagitis; K44.9 Diaphragmatic hernia without obstruction or gangrene; K31.7 Polyp of stomach and duodenum; K31.89 Other diseases of stomach and duodenum; K29.80 Duodenitis without bleeding; Q43.8 Other specified congenital malformations of intestine; J44.9 Chronic obstructive pulmonary disease, unspecified; Z87.891 Personal history of nicotine dependence; Z79.899 Other long term (current) drug therapy; Z88.0 Allergy status to penicillin; Z91.030 Bee allergy status
CPT/HCPCS: 43239; J2003; J2704; J7120; 00731; 88305; 88342

== ENCOUNTER 2024-09-18 10:59 | Emergency (ER) | payer OTHER, MEDICAID ==
[2024-09-18 11:17] VITALS: BP 138/85; PULSE 76
[2024-09-18] MEDS: Acetaminophen/oxyCODONE 325-10 MG Tab PO ONE (13:01)
== END 2024-09-18 13:27 | disposition home or self-care (01) ==
LOC: MW.ED 10:59
DX: S49.91XA Unspecified injury of right shoulder and upper arm, initial encounter (principal); Z75.3 Unavailability and inaccessibility of health-care facilities; Z88.0 Allergy status to penicillin; Z91.030 Bee allergy status; Z90.49 Acquired absence of other specified parts of digestive tract; Z87.891 Personal history of nicotine dependence; W01.198A Fall on same level from slipping, tripping and stumbling with subsequent striking against other object, initial encounter
CPT/HCPCS: 73030; 99283; A9270